=== PATIENT | female | born 1960 | race Caucasian/White ===

== ENCOUNTER 2019-01-05 15:56 | Outpatient (REF) | payer OTHER, MEDICAID, SELFPAY ==
[2019-01-05 19:36] LABS: Hemoglobin A1C 6.8 % (4.5-6.2)
[2019-01-05 22:09] LABS: ALT 41 U/L (12-78); AST 32 U/L (15-37); Albumin 3.7 g/dL (3.4-5.0); Alkaline Phosphatase 99 U/L (46-116); Anion Gap 12.6 mmol/L (3-11); BUN 11 mg/dL (7-18); Bilirubin, Total 0.4 mg/dL (0.2-1.0); CO2 23.4 mmol/L (21.0-32.0); CREATININE 1.02 mg/dL (0.55-1.02); Calcium 9.7 mg/dL (8.5-10.1); Chloride 104 mmol/L (98-107); Estimated GFR 55.86 (mL/min/1.73m2); FREE T4 0.95 ng/dL (0.76-1.46); Glucose 105 mg/dL (70-100); Sodium 140 mmol/L (136-145); TSH 8.25 uIU/mL (0.358-3.74); Total Protein 7.2 g/dL (6.4-8.2)
[2019-01-05 22:23] LABS: Calculated LDL 105; Cholesterol 171 mg/dL (50-200); HDL Cholesterol 45 mg/dL (40-60); Triglyceride 107 mg/dL (30-150)
== END 2019-01-05 16:16 ==
LOC: NCHCN 15:56
PROVIDERS: Visit Provider Nurse Practitioner Family
DX: I10 Essential (primary) hypertension (principal); E78.5 Hyperlipidemia, unspecified; E05.90 Thyrotoxicosis, unspecified without thyrotoxic crisis or storm
CPT/HCPCS: 80053; 80061; 83721; 83036; 84439; 84443

== ENCOUNTER 2019-09-08 13:25 | Outpatient (REF) | payer OTHER, MEDICAID, SELFPAY ==
[2019-09-08 20:05] LABS: TSH 3.68 uIU/mL (0.36-3.74)
== END 2019-09-08 13:45 ==
LOC: NCHCN 13:25
PROVIDERS: PCP Nurse Practitioner Family; Referring Provider Nurse Practitioner Family; Visit Provider Nurse Practitioner Family
DX: E03.9 Hypothyroidism, unspecified (principal)
CPT/HCPCS: 84443; 87480; 87510; 87660

== ENCOUNTER 2020-01-07 14:16 | Outpatient (REF) | payer OTHER, MEDICAID, SELFPAY ==
[2020-01-07 20:49] LABS: ALT 33 U/L (14-59); AST 26 U/L (15-37); Albumin 3.8 g/dL (3.4-5.0); Alkaline Phosphatase 85 U/L (46-116); Anion Gap 8.4 mmol/L (3-11); BUN 11 mg/dL (7-18); Bilirubin, Total 0.5 mg/dL (0.2-1.0); CO2 28.6 mmol/L (21.0-32.0); CREATININE 1.13 mg/dL (0.55-1.02); Calcium 9.4 mg/dL (8.5-10.1); Calculated LDL 121 mg/dL (<100); Chloride 102 mmol/L (98-107); Cholesterol 196 mg/dL (<200); Estimated GFR 49.46 (mL/min/1.73m2); Glucose 93 mg/dL (74-106); HDL Cholesterol 57 mg/dL (40-60); Potassium 4.1 mmol/L (3.5-5.1); Sodium 139 mmol/L (136-145); Total Protein 7.5 g/dL (6.4-8.2); Triglyceride 91 mg/dL (<150)
== END 2020-01-07 14:36 ==
LOC: NCHCN 14:16
PROVIDERS: PCP Nurse Practitioner Family; Visit Provider Nurse Practitioner Family
DX: I10 Essential (primary) hypertension (principal); E78.5 Hyperlipidemia, unspecified
CPT/HCPCS: 80053; 80061

== ENCOUNTER 2021-01-09 19:00 | Outpatient (REF) | payer OTHER, MEDICAID, SELFPAY ==
[2021-01-09 21:04] LABS: ALT 43 U/L (14-59); AST 41 U/L (15-37); Albumin 3.3 g/dL (3.4-5.0); Alkaline Phosphatase 112 U/L (46-116); Anion Gap 10.9 mmol/L (3-11); BUN 13 mg/dL (7-18); Bilirubin, Total 0.2 mg/dL (0.2-1.0); CO2 25.1 mmol/L (21.0-32.0); CREATININE 1.1 mg/dL (0.55-1.02); Calcium 8.6 mg/dL (8.5-10.1); Chloride 103 mmol/L (98-107); Estimated GFR 50.84 (mL/min/1.73m2); Glucose 135 mg/dL (74-106); Potassium 3.8 mmol/L (3.5-5.1); Sodium 139 mmol/L (136-145); TSH 4.97 uIU/mL (0.36-3.74); Total Protein 7.1 g/dL (6.4-8.2)
[2021-01-09 21:22] LABS: Calculated LDL 101 mg/dL (<100); Cholesterol 169 mg/dL (<200); HDL Cholesterol 40 mg/dL (40-60); Triglyceride 142 mg/dL (<150)
== END 2021-01-09 19:01 | disposition home or self-care (01) ==
LOC: NCHCN 19:00
PROVIDERS: PCP Nurse Practitioner Family; Visit Provider Nurse Practitioner Family
DX: I10 Essential (primary) hypertension (principal); E78.5 Hyperlipidemia, unspecified; E11.9 Type 2 diabetes mellitus without complications; E03.9 Hypothyroidism, unspecified
CPT/HCPCS: 80053; 80061; 83036; 84443

== ENCOUNTER 2021-07-25 19:10 | Outpatient (REF) | payer OTHER, MEDICAID, SELFPAY ==
[2021-07-25 20:09] LABS: COMMENT (LAB VIEW ONLY) 134.54 mg/dL; Microalb ug/mg Crea 12.9 ug/mg Cr
[2021-07-25 20:49] LABS: Anion Gap 8.4 mmol/L (3-11); BUN 9 mg/dL (7-18); CO2 29.6 mmol/L (21.0-32.0); Chloride 101 mmol/L (98-107); Estimated GFR 56.56 (mL/min/1.73m2); Glucose 131 mg/dL (74-106); Potassium 3.7 mmol/L (3.5-5.1); Sodium 139 mmol/L (136-145); TSH (W/Ref FT4) 9.59 uIU/mL (0.36-3.74)
[2021-07-25 21:14] LABS: FREE T4 1.02 ng/dL (0.76-1.46)
== END 2021-07-25 19:11 | disposition home or self-care (01) ==
LOC: NCHCN 19:10
PROVIDERS: PCP Nurse Practitioner Family; Visit Provider Physician Assistant
DX: E11.9 Type 2 diabetes mellitus without complications (principal); I10 Essential (primary) hypertension; E03.9 Hypothyroidism, unspecified
CPT/HCPCS: 80048; 82043; 82570; 84439; 84443

== ENCOUNTER 2021-09-12 16:22 | Outpatient (REF) | payer OTHER, MEDICAID, SELFPAY ==
[2021-09-12 21:34] LABS: TSH (W/Ref FT4) 7.95 uIU/mL (0.36-3.74)
[2021-09-12 22:14] LABS: FREE T4 1.11 ng/dL (0.76-1.46)
== END 2021-09-12 16:23 | disposition home or self-care (01) ==
LOC: NCHCN 16:22
PROVIDERS: PCP Nurse Practitioner Family; Visit Provider Physician Assistant
DX: E03.9 Hypothyroidism, unspecified (principal)
CPT/HCPCS: 84439; 84443

== ENCOUNTER 2022-01-10 18:27 | Outpatient (REF) | payer OTHER, MEDICAID, SELFPAY ==
[2022-01-10 21:47] LABS: ALT 54 U/L (14-59); AST 67 U/L (15-37); Albumin 3.6 g/dL (3.4-5.0); Alkaline Phosphatase 101 U/L (46-116); Anion Gap 8.7 mmol/L (3-11); BUN 11 mg/dL (7-18); Bilirubin, Total 0.3 mg/dL (0.2-1.0); CO2 27.3 mmol/L (21.0-32.0); CREATININE 0.9 mg/dL (0.55-1.02); Calcium 9.2 mg/dL (8.5-10.1); Chloride 106 mmol/L (98-107); Glucose 100 mg/dL (74-106); Potassium 3.9 mmol/L (3.5-5.1); Sodium 142 mmol/L (136-145); TSH (W/Ref FT4) 8.63 uIU/mL (0.36-3.74); Total Protein 7.4 g/dL (6.4-8.2)
[2022-01-10 22:06] LABS: FREE T4 1.15 ng/dL (0.76-1.46)
== END 2022-01-10 18:28 | disposition home or self-care (01) ==
LOC: NCHCN 18:27
PROVIDERS: PCP Nurse Practitioner Family; Visit Provider Physician Assistant
DX: E11.9 Type 2 diabetes mellitus without complications (principal); E03.9 Hypothyroidism, unspecified
CPT/HCPCS: 80053; 84439; 84443

== ENCOUNTER 2022-02-15 11:36 | Outpatient (REF) | payer OTHER, MEDICAID, SELFPAY ==
[2022-02-15 19:22] LABS: TSH (W/Ref FT4) 4.59 uIU/mL (0.36-3.74)
== END 2022-02-15 11:37 | disposition home or self-care (01) ==
LOC: NCHCN 11:36
PROVIDERS: PCP Nurse Practitioner Family; Visit Provider Physician Assistant
DX: E03.9 Hypothyroidism, unspecified (principal)
CPT/HCPCS: 84439; 84443

== ENCOUNTER 2022-10-11 15:52 | Outpatient (REF) | payer MEDICARE, MEDICAID, SELFPAY ==
[2022-10-11 19:33] LABS: TSH 3.92 uIU/mL (0.36-3.74)
== END 2022-10-11 15:53 | disposition home or self-care (01) ==
LOC: NCHCN 15:52
PROVIDERS: PCP Nurse Practitioner Family; Visit Provider Nurse Practitioner Family
DX: E03.9 Hypothyroidism, unspecified (principal)
CPT/HCPCS: 84443

== ENCOUNTER 2023-02-13 16:56 | Outpatient (REF) | payer MEDICARE, MEDICAID, SELFPAY ==
[2023-02-13 20:22] LABS: HCT 29.8 % (36.0-46.0); MCH 21.6 pg (27.0-33.0); MCHC 30.2 % (32.0-36.0); MPV 10.9 fL (8.0-11.0); RBC 4.16 10^6/uL (3.93-5.22); RDW 18.4 % (11.7-14.6); WBC 4.32 10^3/uL (4.4-10.8)
[2023-02-13 20:50] LABS: MCV 72 fL (80-95); Platelet Count 153 10^3/uL (130-400)
[2023-02-13 20:51] LABS: ALT 26 U/L (14-59); AST 27 U/L (15-37); Albumin 3.7 g/dL (3.4-5.0); Alkaline Phosphatase 89 U/L (46-116); Anion Gap 11.2 mmol/L (3-11); BUN 8 mg/dL (7-18); Bilirubin, Total 0.6 mg/dL (0.2-1.0); CO2 26.8 mmol/L (21.0-32.0); CREATININE 0.9 mg/dL (0.55-1.02); Calcium 9.4 mg/dL (8.5-10.1); Chloride 102 mmol/L (98-107); Estimated GFR 72.73 (mL/min/1.73m2); Glucose 95 mg/dL (74-106); Potassium 3.8 mmol/L (3.5-5.1); Sodium 140 mmol/L (136-145); Total Protein 7.6 g/dL (6.4-8.2)
[2023-02-13 20:59] LABS: COMMENT (LAB VIEW ONLY) 98.36 mg/dL
== END 2023-02-13 16:57 | disposition home or self-care (01) ==
LOC: NCHCN 16:56
PROVIDERS: PCP Nurse Practitioner Family; Visit Provider Physician Assistant
DX: E11.9 Type 2 diabetes mellitus without complications (principal); R74.8 Abnormal levels of other serum enzymes
CPT/HCPCS: 80053; 85027; 82043; 82570

== ENCOUNTER 2023-02-15 15:41 | Outpatient (REF) | payer MEDICARE, MEDICAID, SELFPAY ==
[2023-02-15 19:18] LABS: Iron 19 ug/dL (50-170); Total Iron Binding Capacity 512 ug/dL (250-450); Transferrin Sat 4 % (15-50)
[2023-02-15 19:29] LABS: Ferritin 7 ng/mL (8-252)
== END 2023-02-15 15:42 | disposition home or self-care (01) ==
LOC: NCHCN 15:41
PROVIDERS: PCP Nurse Practitioner Family; Visit Provider Physician Assistant
DX: D64.9 Anemia, unspecified (principal)
CPT/HCPCS: 82728; 83540; 83550

== ENCOUNTER 2023-04-22 13:05 | Outpatient (REF) | payer MEDICARE, MEDICAID, SELFPAY ==
[2023-04-22 20:26] LABS: HCT 31.8 % (36.0-46.0); HGB 9.5 g/dL (11.2-15.7); MCH 21.7 pg (27.0-33.0); MCHC 29.9 % (32.0-36.0); MCV 73 fL (80-95); Platelet Count 156 10^3/uL (130-400); RBC 4.38 10^6/uL (3.93-5.22); RDW 18.7 % (11.7-14.6); RDW-SD 48.2 fL; WBC 4.52 10^3/uL (4.4-10.8)
[2023-04-22 21:03] LABS: Ferritin 8 ng/mL (8-252)
[2023-04-22 21:53] LABS: Iron 135 ug/dL (50-170); Total Iron Binding Capacity 483 ug/dL (250-450); Transferrin Sat 28 % (15-50)
== END 2023-04-22 13:06 | disposition home or self-care (01) ==
LOC: NCHCN 13:05
PROVIDERS: PCP Nurse Practitioner Family; Visit Provider Physician Assistant
DX: D50.9 Iron deficiency anemia, unspecified (principal)
CPT/HCPCS: 85027; 82728; 83540; 83550

== ENCOUNTER 2023-08-13 15:30 | Outpatient (REF) | payer MEDICARE, MEDICAID, SELFPAY ==
[2023-08-13 19:35] LABS: Abs Immature Grans 0.02 10^3/uL (0.0-0.06); Absolute Basophil Count 0.07 10^3/uL (0.0-0.2); Absolute Eosinophil Count 0.21 10^3/uL (0.0-0.7); Absolute Monocyte Count 0.49 10^3/uL (0.1-0.8); Absolute Neutrophil Count 1.91 10^3/uL (1.2-6.7); Basophils % 1.6; Eosinophils % 4.9; HGB 12.3 g/dL (11.2-15.7); Immature Grans % 0.5; Lymphocytes % 37.2; MCHC 33.2 % (32.0-36.0); MCV 84 fL (80-95); MPV 11.8 fL (8.0-11.0); Monocytes % 11.4; Neutrophils % 44.4; Platelet Count 122 10^3/uL (130-400); RBC 4.39 10^6/uL (3.93-5.22); RDW 15.1 % (11.7-14.6); RDW-SD 46.1 fL
[2023-08-13 20:08] LABS: Anion Gap 9.2 mmol/L (3-11); BUN 11 mg/dL (7-18); CO2 26.8 mmol/L (21.0-32.0); CREATININE 0.8 mg/dL (0.55-1.02); Calcium 9.8 mg/dL (8.5-10.1); Chloride 102 mmol/L (98-107); Estimated GFR 83.26 (mL/min/1.73m2); Ferritin 42 ng/mL (8-252); Glucose 94 mg/dL (74-106); Potassium 3.6 mmol/L (3.5-5.1); Sodium 138 mmol/L (136-145); TSH (W/Ref FT4) 5.33 uIU/mL (0.36-3.74)
[2023-08-13 20:18] LABS: Hemoglobin A1C 6.5 % (<5.7)
[2023-08-13 20:28] LABS: FREE T4 1.22 ng/dL (0.76-1.46)
[2023-08-13 21:06] LABS: Iron 96 ug/dL (50-170); Total Iron Binding Capacity 470 ug/dL (250-450); Transferrin Sat 20 % (15-50)
== END 2023-08-13 15:31 | disposition home or self-care (01) ==
LOC: NCHCN 15:30
PROVIDERS: PCP Nurse Practitioner Family; Visit Provider Physician Assistant
DX: D50.9 Iron deficiency anemia, unspecified (principal); E11.9 Type 2 diabetes mellitus without complications; E03.9 Hypothyroidism, unspecified
CPT/HCPCS: 80048; 82728; 83036; 83540; 83550; 84439; 84443; 85025

== ENCOUNTER 2023-10-02 13:45 | Outpatient (REF) | payer MEDICARE, MEDICAID, SELFPAY ==
[2023-10-02 20:28] LABS: TSH (W/Ref FT4) 2.01 uIU/mL (0.36-3.74)
== END 2023-10-02 13:46 | disposition home or self-care (01) ==
LOC: NCHCN 13:45
PROVIDERS: PCP Nurse Practitioner Family; Visit Provider Physician Assistant
DX: E03.9 Hypothyroidism, unspecified (principal)
CPT/HCPCS: 84443

== ENCOUNTER 2024-02-13 16:35 | Outpatient (REF) | payer MEDICARE, MEDICAID, SELFPAY ==
--- OUTSIDE RECORDS SUMMARY | 2024-02-13 16:37 | XMS_ITS | Clinical Summary ---
Author Organization [facility] Address [address] [place] [id number] Care Team Providers Care Construction Craft Laborer Name Role Phone Agus Kumar MD Primary Care Provider Social History Tobacco Use Types Packs/Day Years Used Date Smoking Tobacco: Never Assessed Sex and Gender Information Value Date Recorded Sex Assigned at Not on file Gender Identity Not on file Sexual Orientation Not on file Plan of Treatment Health Maintenance Due Date Last Done Comments Hepatitis C Screen 1960 RSV Immunization ( o r 60+ Years) (1 - 1-dose 60+ series) 2021 COVID-19 Vaccine (2022-24 season) 2023 Care Teams Construction Craft Laborer Relationship Specialty Start Date End Date Agus Kumar MD [address] [place] [address] PCP - General 06/18/15
--- OUTSIDE RECORDS SUMMARY | 2024-02-13 16:37 | XMS_ITS | Referral Summary ---
Author Organization [facility] Address [address] [place] [address] Care Team Providers Care Field Checker Name Role Phone Agus Kumar MD Primary Care Provider [phone] Social History Tobacco Use Types Packs/Day Years Used Date Smoking Tobacco: Never Assessed Sex and Gender Information Value Date Recorded Sex Assigned at Not on file Gender Identity Not on file Sexual Orientation Not on file Plan of Treatment Not on file Care Teams Field Checker Relationship Specialty Start Date End Date Agus Kumar MD [address] [place] [address] PCP - General 06/18/15
--- OUTSIDE RECORDS SUMMARY | 2024-02-13 16:37 | XMS_ITS | Data Portability ---
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 Plan of Treatment Reminders Order Date Submit Date Provider Last Modified By Organization Details Last Modified Time Details Appointments Annual Wellness Exam 40 2023 01:40P Andrea EVANGELISTA Not available Not available Not available Follow Up 30 2024 09:30A M BIRDIE EVANGELISTA Not available Not available Not available Lab hemoglobi n A1C, fingersti ck 2022 023 [email or web address] [facility] [place], [address] [place] [address] [address], [place], [address], 06/21/2023 15:17:10 BMP, serum or plasma [address] [facility] (Registration ), [address] [place] [address] [place], [address], 08/20/2023 08:03:03 HbA1c (hemoglob in A1c), blood [address] [facility] (Registration ), [address] [place] [address] [place], [address], 08/20/2023 08:03:03 TSH, serum, reflex free T4 - Specimen collected in the office at [facility]. [address] [facility] (Registration ), [address] [place] [address] [place], [address], 08/20/2023 08:03:03 CBC w/ auto diff - Specimen collected in the office at [facility]. 2023 024 [facility] (Registration ), [address] [place] [address] [place], [address], 08/13/2023 19:40:38 iron + TIBC + ferritin, serum - Specimen collected in the office at [facility]. [address] [facility] (Registration ), [address] [place] [address] [place], [address], 08/20/2023 08:03:03 TSH, serum, reflex free T4 [address] [facility] (Registration ), [address] [place] [address] [place], [address], 10/03/2023 07:36:24 Referral None recorded. Procedures None recorded. Surgeries None recorded. Imaging MRI, brain, w/wo contrast - post concussio n symptoms after fall in may also CT scan showed moderate white matter disease r/o MS 2023 024 [facility], [address] , [place], [address], 08/13/2023 16:07:40 Medication Orders cyclobenz aprine 5 mg tablet 2022 023 [id number], [address], [place], [address], 06/21/2023 15:17:13 Patient TargetsNo targets recorded. Patient Instructions Encounter Date Encounter Id Patient Instructions Last Modified By Organization Details Last Modified Time 06/21/2023 [id number] {{[facility] ([facility])* [place] r[facility] ([facility]) [facility] ([facility]) [facility] ([facility]) [facility] ([facility]) [facility] ([facility]) [facility]}} will contact you to schedule {{bone density CT scan Heart Monitor mammogram MRI Ultrasound S tress Test Xray MRI of brain#}}. If you do not receive a call in 7-10 days please contact the office. You have been prescribed cyclobenzaprine. Take as directed on the bottle. This medication can make you drowsy or dizzy. Do not drive or operate heavy machinery while on this medication. It is okay to take it just at bedtime if you need to drive during the day. drink plenty water, eat regular healthy meals, get plenty of sleep and take breaks frequently Not available 06/21/2023 15:23:03 08/13/2023 [id number] You had blood work done today. Please allow up to 2 weeks to hear about results. {{[facility] ([facility])* [place] mercado [facility] ([facility]) [facility] ([facility] ([facility]) [facility] ([facility]) [facility] ([facility]) [facility]}} will contact you to schedule {{bone density CT scan Heart Monitor mammogram MRI* Ultrasound Stress Test Xray}}. If you do not receive a call in 7-10 days please contact the office. continue current medications Call with any questions or concerns Not available 08/13/2023 13:46:16 Reason for Referral None Reported. Results Created Date Observation Date Name Description Value Unit Range Abnormal Flag LastModifiedBy Organization Detail LastModifiedTime 06/21/2006/21/2023 hemog lobin A1C, finge rstic k HbA1C 6.4 Not Available [facility] [address] [facility] [address], [place], [address], 06/21/2023 15:00:46 08/13/19 24 08/13/2023 COMPL ETE BLOOD COUNT W/DIF F WBC 4.30 10_3/ uL 4.4-10 .8 low Not Available [facility] [address] [facility] [place], [address] 08/13/2023 19:40:38 08/13/19 24 08/13/2023 COMPL ETE BLOOD COUNT W/DIF F RBC 4.39 10_6/ uL 3.93-5 .22 normal Not Available [address] [place], [address] 08/13/2023 19:40:38 08/13/19 24 08/13/2023 COMPL ETE BLOOD COUNT W/DIF F HGB 12.3 g/dL 11.2-1 5.7 normal Not Available [address] [place], [address] 08/13/2023 19:40:38 08/13/19 24 08/13/2023 COMPL ETE BLOOD COUNT W/DIF F HCT 37.0 % 36.0-4 6.0 normal Not Available [address] [place], [address] 08/13/2023 19:40:38 08/13/19 24 08/13/2023 COMPL ETE BLOOD COUNT W/DIF F MCV 84 fL 80-95 normal Not Available [address] [place], [address] 08/13/2023 19:40:38 08/13/19 24 08/13/2023 COMPL ETE BLOOD COUNT W/DIF F MCH 28.0 pg 27.0-3 3.0 normal Not Available [address] [place], [address] 08/13/2023 19:40:38 08/13/19 24 08/13/2023 COMPL ETE BLOOD COUNT W/DIF F MCHC 33.2 % 32.0-3 6.0 normal Not Available [address] [place], [address] 08/13/2023 19:40:38 08/13/19 24 08/13/2023 COMPL ETE BLOOD COUNT W/DIF F RDW 15.1 % 11.7-1 4.6 high Not Available [address] [place], [address] 08/13/2023 19:40:38 08/13/19 24 08/13/2023 COMPL ETE BLOOD COUNT W/DIF F platelet count 122 10_3/ uL 130-40 0 low Not Available [address] [place], [address] 08/13/2023 19:40:38 08/13/19 24 08/13/2023 COMPL ETE BLOOD COUNT W/DIF F MPV 11.8 fL 8.0-11 .0 high Not Available [address] [place], [address] 08/13/2023 19:40:38 08/13/19 24 08/13/2023 COMPL ETE BLOOD COUNT W/DIF F neutrophils % 44.4 Not Available [address] [place], [address] 08/13/2023 19:40:38 08/13/19 24 08/13/2023 COMPL ETE BLOOD COUNT W/DIF F lymphocytes % 37.2 Not Available [address] [place], [address] 08/13/2023 19:40:38 08/13/19 24 08/13/2023 COMPL ETE BLOOD COUNT W/DIF F monocytes % 11.4 Not Available [address] [place], [address] 08/13/2023 19:40:38 08/13/19 24 08/13/2023 COMPL ETE BLOOD COUNT W/DIF F eosinophils % 4.9 Not Available [address] [place], [address] 08/13/2023 19:40:38 08/13/19 24 08/13/2023 COMPL ETE BLOOD COUNT W/DIF F basophils % 1.6 Not Available [address] [facility] [place], [address] 08/13/2023 19:40:38 08/13/19 24 08/13/2023 COMPL ETE BLOOD COUNT W/DIF F immature grans % 0.5 Not Available [address] [place], [address] 08/13/2023 19:40:38 08/13/19 24 08/13/2023 COMPL ETE BLOOD COUNT W/DIF F nucleated RBC 0.0 % 0.0-0. 3 normal Not Available [address] [place], [address] 08/13/2023 19:40:38 08/13/19 24 08/13/2023 COMPL ETE BLOOD COUNT W/DIF F absolute neutrophil count 1.91 10_3/ uL 1.2-6. 7 normal Not Available [address] [place], [address] 08/13/2023 19:40:38 08/13/19 24 08/13/2023 COMPL ETE BLOOD COUNT W/DIF F absolute lymphocyte count 1.60 10_3/ uL 1.2-3. 4 normal Not Available [address] [place], [address] 08/13/2023 19:40:38 08/13/19 24 08/13/2023 COMPL ETE BLOOD COUNT W/DIF F absolute monocyte count 0.49 10_3/ uL 0.1-0. 8 normal Not Available [address] [place], [address] 08/13/2023 19:40:38 08/13/19 24 08/13/2023 COMPL ETE BLOOD COUNT W/DIF F absolute eosinophil count 0.21 10_3/ uL 0.0-0. 7 normal Not Available [address] [place], [address] 08/13/2023 19:40:38 08/13/19 24 08/13/2023 COMPL ETE BLOOD COUNT W/DIF F absolute basophil count 0.07 10_3/ uL 0.0-0. 2 normal Not Available [address] [place], [address] 08/13/2023 19:40:38 08/13/19 24 08/13/2023 BASIC METAB OLIC PANEL calcium 9.8 mg/dL 8.5-10 .1 normal Not Available [address] [place], [address] 08/13/2023 20:10:42 08/13/19 24 08/13/2023 BASIC METAB OLIC PANEL glucose 94 mg/dL 74-106 normal Not Available [address] [place], [address] 08/13/2023 20:10:42 08/13/19 24 08/13/2023 BASIC METAB OLIC PANEL BUN 11 mg/dL 7-18 normal Not Available [address] [place], [address] 08/13/2023 20:10:42 08/13/19 24 08/13/2023 BASIC METAB OLIC PANEL creatinine 0.8 mg/dL 0.55-1 .02 normal Not Available [address] [place], [address] 08/13/2023 20:10:42 08/13/19 24 08/13/2023 BASIC METAB OLIC PANEL estimated GFR 83.26 mL/min /1.73m 2 Not Available [address] [place], [address] 08/13/2023 20:10:42 08/13/19 24 08/13/2023 BASIC METAB OLIC PANEL sodium 138 mmol/ L 136-14 5 normal Not Available [address] [place], [address] 08/13/2023 20:10:42 08/13/19 24 08/13/2023 BASIC METAB OLIC PANEL potassium 3.6 mmol/ L 3.5-5. 1 normal Not Available [address] [place], [address] 08/13/2023 20:10:42 08/13/19 24 08/13/2023 BASIC METAB OLIC PANEL chloride 102 mmol/ L 98-107 normal Not Available [address] [place], [address] 08/13/2023 20:10:42 08/13/19 24 08/13/2023 BASIC METAB OLIC PANEL CO2 26.8 mmol/ L 21.0-3 2.0 normal Not Available [address] [place], [address] 08/13/2023 20:10:42 08/13/19 24 08/13/2023 BASIC METAB OLIC PANEL anion gap 9.2 mmol/ L 3-11 normal Not Available [address] [place], [address] 08/13/2023 20:10:42 08/13/19 24 08/13/2023 ELAN TIN ferritin 42 NG/mL 8-252 normal Not Available [address] [place], [address] 08/13/2023 20:10:42 08/13/19 24 08/13/2023 TSH (W/RE F FT4) TSH (w/ref FT4) 5.33 uIU/m L 0.36-3 .74 high Not Available [address] [place], [address] 08/13/2023 20:10:42 08/13/19 24 08/13/2023 HEMOG LOBIN A1C hemoglobin A1C 6.5 % <5.7 high Not Available [address] [place], [address] 08/13/2023 20:25:44 08/13/19 24 08/13/2023 BASIC METAB OLIC PANEL calcium 9.8 mg/dL 8.5-10 .1 normal Not Available [address] [place], [address] 08/13/2023 20:29:45 08/13/19 24 08/13/2023 BASIC METAB OLIC PANEL glucose 94 mg/dL 74-106 normal Not Available [address] [place], [address] 08/13/2023 20:29:45 08/13/19 24 08/13/2023 BASIC METAB OLIC PANEL BUN 11 mg/dL 7-18 normal Not Available [address] [place], [address] 08/13/2023 20:29:45 08/13/19 24 08/13/2023 BASIC METAB OLIC PANEL creatinine 0.8 mg/dL 0.55-1 .02 normal Not Available [address] [place], [address] 08/13/2023 20:29:45 08/13/19 24 08/13/2023 BASIC METAB OLIC PANEL estimated GFR 83.26 mL/min /1.73m 2 Not Available [address] [place], [address] 08/13/2023 20:29:45 08/13/19 24 08/13/2023 BASIC METAB OLIC PANEL sodium 138 mmol/ L 136-14 5 normal Not Available [address] [place], [address] 08/13/2023 20:29:45 08/13/19 24 08/13/2023 BASIC METAB OLIC PANEL potassium 3.6 mmol/ L 3.5-5. 1 normal Not Available [address] [place], [address] 08/13/2023 20:29:45 08/13/19 24 08/13/2023 BASIC METAB OLIC PANEL chloride 102 mmol/ L 98-107 normal Not Available [address] [place], [address] 08/13/2023 20:29:45 08/13/19 24 08/13/2023 BASIC METAB OLIC PANEL CO2 26.8 mmol/ L 21.0-3 2.0 normal Not Available [address] [place], [address] 08/13/2023 20:29:45 08/13/19 24 08/13/2023 BASIC METAB OLIC PANEL anion gap 9.2 mmol/ L 3-11 normal Not Available [address] [place], [address] 08/13/2023 20:29:45 08/13/19 24 08/13/2023 ELAN TIN ferritin 42 NG/mL 8-252 normal Not Available [address] [place], [address] 08/13/2023 20:29:45 08/13/19 24 08/13/2023 TSH (W/RE F FT4) TSH (w/ref FT4) 5.33 uIU/m L 0.36-3 .74 high Not Available [address] [place], [address] 08/13/2023 20:29:46 08/13/19 24 08/13/2023 FREE T4 free T4 1.22 NG/dL 0.76-1 .46 normal Not Available [address] [place], [address] 08/13/2023 20:29:46 08/13/19 24 08/13/2023 IRON/ IBCT iron 96 ug/dL 50-170 normal Not Available Payal marie [address] [place], [address] 08/13/2023 21:09:51 08/13/19 24 08/13/2023 IRON/ IBCT total iron binding capacity 470 ug/dL 250-45 0 high Not Available [address] [place], [address] 08/13/2023 21:09:51 08/13/19 24 08/13/2023 IRON/ IBCT transferrin sat 20 % 15-50 normal Not Available [address] [place], [address] 08/13/2023 21:09:51 10/02/19 24 10/02/2023 TSH (W/RE F FT4) TSH (w/ref FT4) 2.01 uIU/m L 0.36-3 .74 normal Not Available [address] [place], [address] 10/02/2023 20:30:11 02/13/20 24 02/13/2024 hemog lobin A1C, finge rstic k hemoglobin A1C 6.6 % <5.7 Not Available [facility] [address] [place] [address], [place], [address], 02/13/2024 13:44:50 Result Notes None recorded. Problems Name Status Onset Date Resolution Date Notes Provider Name and Address Organization Details Recorded Time Severe obesity Active 201808/15/2022 - Comments only - Birdie BENNETT - Congratulated patient on weight loss keep up the good work Problem Code: E66.01; Problem Code Type: ICD-10; Not Available [facility] 3 05:38:56 Essential hypertension Active 201802/14/2023 - Comments only - Birdie BENNETT - Blood pressure well controlled continue current medications. Checking CMP. Problem Code: I10; Problem Code Type: ICD-10; Not Available [facility] 3 05:38:56 Low back pain Active 2018 Problem Code: M54.5; Problem Code Type: ICD-10; Not Available [facility] 3 05:38:57 Hypothyroidis m Active 201802/14/2023 - Comments only - Birdie BENNETT - Continue current dose of levothyroxine . Thyroid last checked in September 2022. Problem Code: E03.9; Problem Code Type: ICD-10; Not Available [facility] 3 05:38:57 Headache Active 2018 Problem Code: R51; Problem Code Type: ICD-10; Not Available [facility] 3 05:38:57 Gastroesophag eal reflux disease without esophagitis Active 2018 Problem Code: K21.9; Problem Code Type: ICD-10; Not Available [facility] 3 05:38:57 Nicotine dependence Active 201802/14/2023 - Comments only - Birdie BENNETT - Patient states that she is a light smoker and is not ready to quit at this time Problem Code: F17.200; Problem Code Type: ICD-10; Not Available [facility] 3 05:38:57 Vitamin D deficiency Active 2018 Problem Code: E55.9; Problem Code Type: ICD-10; Not Available [facility] 3 05:38:57 Type 2 diabetes mellitus without complication Active 201802/15/2022 - Comments only - Birdie BENNETT - A1c decreased to 6.8. Continue current medications. Keep eye exam as scheduled. Patient refuses foot exam. Discussion about proper foot care. Problem Code: E11.9; Problem Code Type: ICD-10; Not Available [facility] 3 05:38:58 Hyperlipidemi a Active 201801/17/2021 - Comments only - Delmi Monroy NP - Tolerating Crestor. Update lipid panel. Problem Code: E78.5; Problem Code Type: ICD-10; Not Available [facility] 3 05:38:58 Counseling Active 201801/08/2019 - Comments only - Delmi Monroy B[employer]ER - Reviewed records, meds, squared away her DM meds (should only be on Janumet). Refills sent to [facility]. Problem Code: Z71.89; Problem Code Type: ICD-10; Not Available [facility] 3 05:38:58 Allergic rhinitis Active 202008/15/2022 - Comments only - Birdie BENNETT - I suspect that her symptoms are more related to allergies and in the past it seems as though she had relief from the Pataday eyedrops. Prescription sent into pharmacy. Continue with Flonase. Problem Code: J30.9; Problem Code Type: ICD-10; Not Available [facility] 3 05:38:58 High enzyme level in serum Active 2021 Problem Code: R74.8; Problem Code Type: ICD-10; Not Available [facility] 3 05:38:58 Iron deficiency anemia Active 2022 Problem Code: D50.9; Problem Code Type: ICD-10; Not Available [facility] 3 05:38:58 Adult health examination Active 2022 Problem Code: Z00.00; Problem Code Type: ICD-10; Not Available [facility] 3 05:38:59 Thyrotoxicosi s Completed 201804/24/2023 Problem Code: E05.90; Problem Code Type: ICD-10; Not Available [facility] 3 05:39:27 Blood glucose outside reference range Completed 201812/15/2018 Problem Code: R73.09; Problem Code Type: ICD-10; Not Available [facility] 3 05:39:32 Anemia Completed 202204/24/2023 Problem Code: D64.9; Problem Code Type: ICD-10; Not Available [facility] 3 05:39:36 Major depression, single episode Completed 201801/05/2019 Problem Code: F32.9; Problem Code Type: ICD-10; Not Available [facility] 3 05:39:37 Postconcussio n syndrome Active [address], [place], [address] , [facility]. 3 15:15:22 Neck pain Active 202205/20/2023 - Comments only - Edith Worrell [employer] - Neck pain and headache s/p fall on Saturday. Was sitting on a chair that collapsed and she hit her head and back on the chest freezer just behind her. Feels achy all over, has been taking acetaminphen without signficant relief Problem Code: M54.2; Problem Code Type: ICD-10; Not Available [facility] 4 05:37:26 Tremor Active 202205/20/2023 - Comments only - Edith Worrell B[employer]OCKER - Has been having shaking spells which started prior to her fall. Reports she drinks Iced coffee all day long from first waking to just before bed. Has episodes where she is shaking all over. Recommend try to decrease her caffeine, follow up with PCP in one week. Sooner if needed Problem Code: R25.1; Problem Code Type: ICD-10; Not Available [facility] 4 05:37:26 White matter disease Active 2022 Problem Code: R90.82; Problem Code Type: ICD-10; Not Available [facility] 4 05:37:26 Problem Notes None recorded. Procedures Surgical History Date Name Laterality Status Provider Name and Address Organization Details Recorded Time 2 Date of Last Pap Smear completed Layne Sarmiento RN null, [facility] 09/30/2023 11:06:22 Colonoscopy completed Layne Sarmiento RN null, [facility] 09/30/2023 11:08:24 Imaging Results None recorded. Procedure Notes None recorded. Medical Equipment None Reported. Allergies Allergen ID Allergen Name Allergen Category Reaction Reaction Severity Criticality Documentation Date Start Date Code Code System Note Provider Name and Address Organization Details Recorded Time 99885 acetamino phen / oxycodone medicatio n hives moderate Not available 06/07/20232018 89999 3 RxNorm hives Aller gyCod e: '7224 [id number] 12'; Aller gyNam e: 'PERC OCET' ; Aller gyCon ceptT ype: 'NDC' ; Not Available [facility] 3 16:18:36 Medications Name Sig Start Date Stop Date Status Note LastModified by Organization Details LastModified Time Vitamin C 500 mg tablet Take 1 tablet by mouth once a day with iron suppleme nt 2022 active Not Available Not Available Not Avai lable metoprolo l succinate ER 100 mg tablet,ex tended release 24 hr TAKE ONE TABLET BY MOUTH EVERY DAY active Not Available Not Available No t Available penicilli n V potassium 500 mg tablet Take two tablets twice a day 10/28 completed Not Available Not Available Not Available omeprazol e 40 mg capsule,d elayed release TAKE ONE CAPSULE BY MOUTH EVERY DAY active Not Available Not Available No t Available levothyro xine 75 mcg tablet Take 1 tablet by mouth once a day 09/13 completed Not Available Not Available Not Available levothyro xine 100 mcg tablet TAKE ONE TABLET BY MOUTH EVERY DAY 08/14 completed dose increase Not Available Not Available Not Available levothyro xine 88 mcg tablet Take 1 tablet by mouth once a day on empty stomach 01/12 completed Not Available Not Available Not Available trazodone 100 mg tablet Take 1 tab by mouth daily at bedtime 01/05 completed Not Available Not Available Not Available Synthroid 25 mcg tablet Take 1 tab by mouth daily 01/06 completed Not Available Not Available Not Available levothyro xine 50 mcg tablet Take 1 tablet by mouth once a day TAKE ONE TABLET BY MOUTH EVERY DAY 09/11 completed Not Available Not Available Not Available metformin 1,000 mg tablet Take 1 tab by mouth twice daily 01/05 completed Not Available Not Available Not Available levothyro xine 125 mcg tablet TAKE ONE TABLET BY MOUTH EVERY MORNING active Not Available Not Available No t Available hydrochlo rothiazid e 25 mg tablet TAKE ONE TABLET BY MOUTH EVERY DAY active Not Available Not Available No t Available gabapenti n 100 mg capsule TAKE ONE CAPSULE BY MOUTH TWICE A DAY active Not Available Not Available No t Available albuterol sulfate HFA 90 mcg/actua tion aerosol inhaler Inhale 2 puff using inhaler every four to six hours as needed FOR COUGHING FITS, WHEEZING OR SHORTNES S OF BREATH 05/27 completed Not Available Not Available Not Available fluticaso ne propionat e 50 mcg/actua tion nasal spray,thomas pension SPRAY TWO SPRAYS IN EACH NOSTRIL EVERY DAY active Not Available Not Available No t Available loratadin e 10 mg tablet Take 1 tablet by mouth once a day 07/25 completed Not Available Not Available Not Available cyclobenz aprine 5 mg tablet TAKE ONE TABLET BY MOUTH THREE TIMES A DAY NEEDED active Not Available Not Available No t Available Crestor 5 mg tablet Take 1 tablet by mouth every night 07/25 completed Not Available Not Available Not Available Albuterol Sulfate HFA 90 mcg/Actua tion aerosol inhaler Inhale 2 puffs every 4 hours by inhalati on route as needed. active Not Available Not Available No t Available Januvia 100 mg tablet Take 1 tab by mouth daily 01/05 completed Not Available Not Available Not Available olopatadi ne 0.2 % eye drops INSTILL ONE DROP IN EACH EYE EVERY 6 TO 8 HOURS NEEDED FOR ALLERGIE S active Not Available Not Available No t Available Janumet 50 mg-1,000 mg tablet TAKE ONE TABLET BY MOUTH TWICE A DAY active Not Available Not Available No t Available FeroSul 325 mg (65 mg iron) tablet TAKE ONE TABLET BY MOUTH ONCE DAILY active Not Available Not Available No t Available Vitals Date Recorded Body height Oxygen saturation Oxygen saturation in Arterial blood by Pulse oximetry Heart rate Systolic blood pressure Diastolic blood pressure Provider Name and Address Organization Details Last Updated DateTime 3 165.1 cm 98 % 98 % 65 /min 124 mm[Hg] 66 mm[Hg] PINEDA GREENWOOD MA DE - [facility]. 3 15:02:12 Date Recorded Body height Body mass index (BMI) Body weight Oxygen saturation Oxygen saturation in Arterial blood by Pulse oximetry Heart rate Systolic blood pressure Diastolic blood pressure Provider Name and Address Organization Details Last Updated DateTime 4 165.1 cm 42.1 kg/m2 959454. 37 g 97 % 97 % 79 /min 134 mm[Hg] 78 mm[Hg] Raymond Trammell RN [facility] 4 13:19:33 Date Recorded Body height Body mass index (BMI) Body weight Body temperature Respiratory rate Oxygen saturation Oxygen saturation in Arterial blood by Pulse oximetry Heart rate Systolic blood pressure Diastolic blood pressure Provider Name and Address Organization Details Last Updated DateTime 4 165.1 cm 41.2 kg/m2 325453. 42 g 96.3 [degF] 18 /min 96 % 96 % 80 /min 130 mm[Hg] 80 mm[Hg] JESUS MOCTEZUMA LPN [facility] 4 13:16:03 Social History Question Answer Notes LastModified by Organizat ion Details LastModified Time Tobacco Smoking Status Current Every Day Smoker ARY LIU, [facility] 06/21/2023 15:00:37 Would You Say That, In General, Your Health Is Fair Information not available 02/13/2024 How Often Does Anyone, Including Family, Physically Hurt You? Never Information not available 02/13/2024 How Often Does Anyone, Including Family, Insult Or Talk Down To You? Never Information no t available 02/13/2024 How Often Does Anyone, Including Family, Threaten You With Harm? Never Information not available 02/13/2024 How Often Does Anyone, Including Family, Scream Or Curse At You? Never Information not available 02/13/2024 Within The Past 12 Months, You Worried That Your Food Would Run Out Before You Got Money To Buy More. Often True Information n ot available 02/13/2024 Within The Past 12 Months, The Food You Bought Just Didn't Last And You Didn't Have Money To Get More. Sometimes True Information not available 02/13/2024 How Hard Is It For You To Pay For The Very Basics Like Food, Housing, Medical Care, And Heating? Would You Say It Is: Somewhat Hard Information not available 02/13/2024 In The Past 12 Months, Has Lack Of Reliable Transportation Kept You From Medical Appointments, Meetings, Work Or From Getting Things Needed For Daily Living? No Information not available 02/13/2024 What Is Your Housing Situation Today? I Have Housing. Information not available 02/13/2024 How Often In The Past Year Have You Used Marijuana (including Smoking, Vaping, Dabbing, Or Edibles)? Never Information not available 02/13/2024 How Often In The Past Year Have You Used Prescription Medications That Were Not Prescribed To You? Never Information n ot available 02/13/2024 How Often In The Past Year Have You Taken Your Own Prescription Medication More Than The Way It Was Prescribed Or For Different Reasons Than Its Intended Purpose? Never Information no t available 02/13/2024 How Often In The Past Year Have You Used Other Drugs (for Example, Heroin, Cocaine, Meth, Salvia, Inhalants)? Never Information not available 02/13/2024 Have You Ever Used IV Drugs? No Information not available 02/13/2024 Date Of Most Recent SBINS 02/13/2024 Information not available 02/13/2024 What Was The Date Of Your Most Recent Tobacco Screening? 02/13/2024 Information not available 02/13/2024 At What Age Did You Start Smoking Tobacco? 17 Information not available 06/21/2023 How Much Tobacco Do You Smoke? 0.5 PPD Information not available 02/13/2024 Has Tobacco Cessation Counseling Been Provided? Yes Information not available 02/13/2024 On What Date Was Tobacco Cessation Counseling Provided? 02/13/2024 Information not available 02/13/2024 Do You Or Have You Ever Used Any Other Forms Of Tobacco Or Nicotine? No Information not available 02/13/2024 Sex: Female Functional Status None recorded. Mental Status None recorded. Family History Nothing Reported. Medical History No medical history recorded. Gynecological History Statement/Question Response Abnormal Pap N Date of Last Pap Smear 05/23/2022 Most Recent Mammogram Obstetrics History GPAL:G 0 P 0 0 0 0 Past Encounters Encounter ID Performer Location Encounter Start Date Encounter Closed Date Diagnosis/Indication Diagnosis SNOMED-CT Code [id number] BIRDIE [address] [address] 06/21/2023 14:48:38 06/21/2023 15:25:40 Type 2 diabetes mellitus without complication 069986222 Postconcus genoveva syndrome 40572832 [id number] BIRDIE EVANGELISTA[address] [address] 08/13/2023 12:50:48 08/13/2023 14:09:37 Iron deficiency anemia 33293304 Type 2 jesus betes mellitus without complication 110253097 Hypothyroidism 32137993 White matter disease 160 [id number] 04 Postconcus genoveva syndrome 94066177 [id number] PINEDA GREENWOOD[address] [address] 10/02/2023 12:45:41 10/02/2023 13:12:53 Hypothyroidism 51755461 [id number] BIRDIE [address] [address] 02/13/2024 12:47:02 02/13/2024 14:20:52 Screening for cardiovascular system disease 863843017 Adult heal th examination 920854705 Obesity 811426355 Type 2 jesus betes mellitus without complication 816196045 Iron defic iency anemia 79044653 Hypothyroidism 64963901 Health Concerns Section Related Observation LastModified by Organization Detai ls LastModified Time None Recorded Concern Status LastModified by Organization Details LastModified Time None Recorded Advance Directives Directive None Recorded Payers Encounter Date Sequence Insurance Name Policy Number Policy Villa Covered Member ID Villa Member ID Guarantor Name 06/21/2023 1 [facility] [id number] Marsha Storm [id number] Marsha Storm 06/21/2023 2 [employer] (MEDICAID) Marsha Storm [id number] Marsha Storm 08/13/2023 1 [facility] [place] [facility] [place] [facility] (O) [id number] Marsha Storm [id number] Marsha Storm 08/13/2023 2 [employer] [facility] (MEDICAID) Marsha Storm [id number] Marsha Storm 10/02/2023 1 [facility] [id number] Marsha Storm [id number] Marsha Storm 10/02/2023 2 [employer] (MEDICAID) Marsha Storm [id number] Marsha Storm Notes Date Note Type Note Provider Name and Address Organization Details Recorded Time 06/21/2023 text/html HPI Notes: Ifeanyi giron presents for follow-up ER visit. She went to [facility] ER on June 01 as she had a bad fall and hit her head. She was waiting on getting a CT scan done but was having issues due to insurance. She had the CT scan done which did not show any acute changes but did show some white matter changes recommended to get an MRI. Patient notes that it has now been a month she is still having issues with a headache. She has pain in her neck up to the bottom of her head. She notes that her muscles are really tight. When she had the fall she did not lose consciousness or have vomiting. She was dazed and saw stars. She notes that now she looks up she will feel slightly dizzy but that does go away. She is doing rest as appropriate. She denies vomiting, vision changes and any new changes in her sleep patterns. [address], [place], [address], [facility]. 06/21/2023 15:36:51 08/13/2023 text/html HPI Notes: Ifeanyi giron presents for follow-up. Her blood pressure is well-controlled on her current medications. She denies chest pains, palpitations, shortness of breath, dizziness and edema. She is still getting some intermittent headaches since having her concussion. She notes that she has tightness of her right upper trap that radiates up to the right side of her head. It is relieved with massage. She has not tried the muscle relaxers yet. She did not have a brain MRI done as she had to cancel due to weather. She continues to smoke less than a half a pack per day. She is not ready to quit. She has been taking the iron supplements daily and tolerating this well without constipation. She notes that she used to sleep all day and now she is not even having to take a nap. She is due for blood work today. She does not have any other concerns. [address], [place], [address], [facility]. 08/13/2023 15:25:29 OBGyn Episode No OBEpisode recorded.
--- OUTSIDE RECORDS SUMMARY | 2024-02-13 16:37 | XMS_ITS | Encounter Summary ---
Author Organization [facility] Address [address] [place] [address] Care Team Providers Care Extract Puller Name Role Phone Unavailable Primary Care Provider Unavailabl e Encounter Details Date Type Department Care Team (Late st Contact Info) Description 05/23/2005 Results Only [facility] - Maple conversion [address] [place] [address] Abhay Howard MD Social History Tobacco Use Types Packs/Day Years Used Date Smoking Tobacco: Never Assessed Sex and Gender Information Value Date Recorded Sex Assigned at Not on file Gender Identity Not on file Sexual Orientation Not on file documented as of this encounter Plan of Treatment Not on file documented as of this encounter Procedures Procedure Name Priority Date/Time Associated Diagnosis Comments CYTOPATHOLOGY Routine 05/23/2005 0:00 EDT documented in this encounter Results * CYTOPATHOLOGY (05/23/2005 0:00 EDT) Pathology Report: CYTOPATHOLOGY REPORT Reports generated via electronic interface contain original data; however they are lacking the format of the original report. Caution should be taken when reading/interpreti ng unformatted reports. Name: ? SANDRA ROJO ? Accession #: ? [id number] : ? 1960 (Age: 44) ??F ?Collect Date: ? 05/23/2005 Location: ? [facility] ? Receive Date: ? 05/25/2005 Provider: ?ABHAY HOWARD MD Copy to: ? Specimen/Source: ?ThinPrep Pap Test, Cervix, processed on [employer] ThinPrep Imaging System, with manual evaluation Last Menstrual Period: ? Other: ? HPVA - HPV testing requested if ASC-US on the current ThinPrep Pap test. ? SPECIMEN ADEQUACY ? Satisfactory for Evaluation - transformation zone component present GENERAL CATEGORIZATION ? Negative for Intraepithelial Lesion or Malignancy ? Document reviewed and electronically signed by: ? TONIA Patterson(ASCP) ? Report Date: ??05/31/2005 15:05 End of Report [facility] 05/23/2005 05/25/2005 Abhay Howard MD PATHOLOGY ORDERABLES [facility] [address] [place] [address] documented in this encounter Visit Diagnoses Not on filedocumented in this encounter
[2024-02-13 19:34] LABS: Abs Immature Grans 0.01 10^3/uL (0.0-0.06); Absolute Basophil Count 0.04 10^3/uL (0.0-0.2); Absolute Eosinophil Count 0.16 10^3/uL (0.0-0.7); Absolute Lymphocyte Count 1.15 10^3/uL (1.2-3.4); Absolute Monocyte Count 0.35 10^3/uL (0.1-0.8); Absolute Neutrophil Count 1.51 10^3/uL (1.2-6.7); Basophils % 1.2 %; HCT 37.9 % (36.0-46.0); HGB 12.9 g/dL (11.2-15.7); Immature Grans % 0.3 %; Lymphocytes % 35.7 %; MCH 29.4 pg (27.0-33.0); MCV 86 fL (80-95); MPV 11.4 fL (8.0-11.0); Monocytes % 10.9 %; Neutrophils % 46.9 %; RBC 4.39 10^6/uL (3.93-5.22); RDW 14.6 % (11.7-14.6); RDW-SD 46.2 fL; WBC 3.22 10^3/uL (4.4-10.8)
[2024-02-13 20:02] LABS: Iron 97 ug/dL (50-170); Total Iron Binding Capacity 420 ug/dL (250-450); Transferrin Sat 23 % (15-50)
[2024-02-13 20:21] LABS: ALT 40 U/L (14-59); AST 41 U/L (15-37); Albumin 3.7 g/dL (3.4-5.0); Alkaline Phosphatase 94 U/L (46-116); Anion Gap 5.4 mmol/L (3-11); BUN 9 mg/dL (7-18); Bilirubin, Total 0.82 mg/dL (0.2-1.0); CO2 27.6 mmol/L (21.0-32.0); CREATININE 0.8 mg/dL (0.55-1.02); Calcium 9.4 mg/dL (8.5-10.1); Chloride 103 mmol/L (98-107); Estimated GFR 83.26 (mL/min/1.73m2); Ferritin 54 ng/mL (8-252); Glucose 108 mg/dL (74-106); Potassium 3.3 mmol/L (3.5-5.1); Sodium 136 mmol/L (136-145); TSH (W/Ref FT4) 1.65 uIU/mL (0.36-3.74); Total Protein 7.3 g/dL (6.4-8.2)
[2024-02-13 20:33] LABS: Platelet Count 99 10^3/uL (130-400)
[2024-02-14 21:28] LABS: HIV-1/2 Ag & Ab Screen Negative (Negative)
[2024-02-14 22:03] LABS: Hepatitis C Ab w Rflx HCV PCR Negative (Negative)
== END 2024-02-13 16:36 | disposition home or self-care (01) ==
LOC: NCHCN 16:35
PROVIDERS: PCP Nurse Practitioner Family; Visit Provider Physician Assistant
DX: D50.9 Iron deficiency anemia, unspecified (principal); E03.9 Hypothyroidism, unspecified; Z11.4 Encounter for screening for human immunodeficiency virus [HIV]; Z11.59 Encounter for screening for other viral diseases
CPT/HCPCS: 80053; 86803; 87389; 82728; 83540; 83550; 84443; 85025

== ENCOUNTER 2024-03-17 14:56 | Outpatient (REF) | payer MEDICARE, MEDICAID, SELFPAY ==
--- OUTSIDE RECORDS SUMMARY | 2024-03-17 14:59 | XMS_ITS | Encounter Summary ---
Author Organization [facility] Address [address] [place] [address] Care Team Providers Care Administrative Job Titles Name Role Phone Agus Kumar MD Primary Care Provider [phone] Encounter Details Date Type Department Care Team (Late st Contact Info) Description 02/14/2024 Lab Requisition [facility] Pathology & Laboratory Medicine - [address] [address] Outr Resulting Lab, Provider Social History Tobacco Use Types Packs/Day Years Used Date Smoking Tobacco: Never Assessed Sex and Gender Information Value Date Recorded Sex Assigned at Not on file Gender Identity Not on file Sexual Orientation Not on file documented as of this encounter Plan of Treatment Not on file documented as of this encounter Procedures Procedure Name Priority Date/Time Associated Diagnosis Comments HEPATITIS C AB W REFLEX TO HCV RNA BY PCR Routine 02/13/2024 14:10 EDT documented in this encounter Results * HEPATITIS C AB W REFLEX TO HCV RNA BY PCR (02/13/2024 14:10 EDT) Hep C Antibody Negative Negative 02/14/2024 21:59 EDT [facility] Blood VENOUS BLOOD / Unknown 02/13/2024 14:10 EDT 02/14/2024 19:51 EDT Provider Outr Resulting Lab CHEMISTRY & BLOOD GAS ORDERABLES [facility] [address] [place] [address] documented in this encounter Visit Diagnoses Not on filedocumented in this encounter Care Teams Administrative Job Titles Relationship Specialty Start Date End Date Agus Kumar MD [address] [place] [address] PCP - General 06/18/15 documented as of this encounter
--- OUTSIDE RECORDS SUMMARY | 2024-03-17 14:59 | XMS_ITS | Encounter Summary ---
Author Organization [facility] Address [address] [place] [address] Care Team Providers Care Chart Calculator Name Role Phone Agus Kumar MD Primary Care Provider [phone] Encounter Details Date Type Department Care Team (Late st Contact Info) Description 02/14/2024 Lab Requisition [facility] Pathology & Laboratory Medicine - [address] [address] Outr Resulting Lab, Provider Social History Tobacco [...] Procedure Name Priority Date/Time Associated Diagnosis Comments HIV 1/2 ANTIGEN AND ANTIBODY, 4TH GENERATION Routine 02/13/2024 14:10 EDT documented in this encounter Results * HIV 1/2 ANTIGEN AND ANTIBODY, 4TH GENERATION (02/13/2024 14:10 EDT) HIV 1 and 2 Antibody/p24 Antigen, 4th Generation Negative Negative 02/14/2024 21:23 EDT [facility] Comment:If acute HIV-1 infec tion is suspected in a high risk patient, submit plasma specimen for HIV-1 RNA quantitation test. Blood VENOUS BLOOD / Unknown 02/13/2024 14:10 EDT 02/14/2024 19:51 EDT Narrative [facility] - 02/14/2024 21:23 EDT Fourth Generation assay performed on the Siemens Centaur XPT. Provider Outr Resulting Lab IMMUNOLOGY A ND SEROLOGY ORDERABLES [facility] [address] [place], [place] [address] documented in this encounter Visit Diagnoses Not on filedocumented in this encounter Care Teams Chart Calculator Relationship Specialty Start Date End Date Agus Kumar MD [address] [place] [address] PCP - General 06/18/15 documented as of this encounter
--- OUTSIDE RECORDS SUMMARY | 2024-03-17 14:59 | XMS_ITS | Encounter Summary ---
Author Organization [facility] Address [address] [place] [address] Care Team Providers Care Hip Hop Dancer Name Role Phone Unavailable Primary Care Provider Unavailabl e Encounter Details Date Type Department Care Team (Late st Contact Info) Description 05/23/2005 Results Only [facility] - Maple conversion [address] [place] [address] Abhay Howard MD Social History Tobacco Use [...] ? SANDRA ROJO ? Accession #: ? [id number] : ? 1960 (Age: 44) ??F ?Collect Date: ? 05/23/2005 Location: ? [facility] ? Receive Date: ? 05/25/2005 Provider: ?ABHAY HOWARD MD Copy to: ? Specimen/Source: ?ThinPrep Pap Test, Cervix, processed on [employer] ThinPrep Imaging System, with manual evaluation Last [...] Howard MD PATHOLOGY ORDERABLES [facility] [address] [place] [address] documented in this encounter Visit Diagnoses Not on filedocumented in this encounter
--- OUTSIDE RECORDS SUMMARY | 2024-03-17 14:59 | XMS_ITS | Referral Summary ---
Author Organization [facility] Address [address] [place] [address] Care Team Providers Care Job Site Supervisor Name Role Phone Agus Kumar MD Primary Care Provider [phone] Encounters Date Type Department Care Team Description 02/14/2024 Lab Requisition [facility] [address] [address] Outr Resulting Lab, Provider 02/14/2024 Lab Requisition [facility] & [facility] [address] [place] [address] Outr Resulting Lab, Provider from Last 3 Months Social History Tobacco Use Types Packs/Day Years Used Date Smoking Tobacco: Never Assessed Sex and Gender Information Value Date Recorded Sex Assigned at Not on file Gender Identity Not on file Sexual Orientation Not on file Plan of Treatment Not on file Procedures Procedure Name Priority Date/Time Associated Diagnosis Comments HEPATITIS C AB W REFLEX TO HCV RNA BY PCR Routine 02/13/2024 14:10 EDT HIV 1/2 ANTIGEN AND ANTIBODY, 4TH GENERATION Routine 02/13/2024 14:10 EDT from Last 3 Months Results * HEPATITIS C AB W REFLEX TO HCV RNA BY PCR (02/13/2024 14:10 EDT) Hep C Antibody Negative Negative 02/14/2024 21:59 EDT [facility] Blood VENOUS BLOOD / Unknown 02/13/2024 14:10 EDT 02/14/2024 19:51 EDT Provider Outr Resulting Lab CHEMISTRY & BLOOD GAS ORDERABLES Performing Organization Address [facility] Co de Phone Number [facility] [address] [place], [place] [phone] * HIV 1/2 ANTIGEN AND ANTIBODY, 4TH GENERATION (02/13/2024 14:10 EDT) HIV 1 and 2 Antibody/p24 Antigen, 4th Generation Negative Negative 02/14/2024 21:23 EDT [facility] Comment:If acute HIV-1 infec tion is suspected in a high risk patient, submit plasma specimen for HIV-1 RNA quantitation test. Blood VENOUS BLOOD / Unknown 02/13/2024 14:10 EDT 02/14/2024 19:51 EDT Narrative [facility] - 02/14/2024 21:23 EDT Fourth Generation assay performed on the [employer] XPT. Provider Outr Resulting Lab IMMUNOLOGY A ND SEROLOGY ORDERABLES Performing Organization Address City/[facility] Co de Phone Number [facility] [address] [place], [place] [phone] from Last 3 Months Care Teams Job Site Supervisor Relationship Specialty Start Date End Date Agus Kumar MD [address] [place] [address] PCP - General 06/18/15
--- OUTSIDE RECORDS SUMMARY | 2024-03-17 14:59 | XMS_ITS | Clinical Summary ---
Author Organization [facility] Address [address] [place] [address] Care Team Providers Care Assignment Desk Editor Name Role Phone Agus Kumar MD Primary Care Provider [phone] Encounters Date Type Department Care Team Description 02/14/2024 Lab Requisition [facility] Pathology & Laboratory [address] [address] Outr Resulting Lab, Provider 02/14/2024 Lab Requisition [facility] Pathology & Laboratory [facility] [address] [place] [address] Outr Resulting Lab, Provider from Last 3 Months Social History Tobacco Use Types Packs/Day Years Used Date Smoking Tobacco: Never Assessed Sex and Gender Information Value Date Recorded Sex Assigned at Not on file Gender Identity Not on file Sexual Orientation Not on file Plan of Treatment Health Maintenance Due Date Last Done Comments RSV Immunization ( o r 60+ Years) (1 - 1-dose 60+ series) 2021 COVID-19 Vaccine (2022-24 season) 2023 Hepatitis C Screen Completed 02/13/2024 Procedures Procedure Name Priority Date/Time Associated Diagnosis Comments HEPATITIS C AB W REFLEX TO HCV RNA BY PCR Routine 02/13/2024 14:10 EDT HIV 1/2 ANTIGEN AND ANTIBODY, 4TH GENERATION Routine 02/13/2024 14:10 EDT from Last 3 Months Results * HEPATITIS C AB W REFLEX TO HCV RNA BY PCR (02/13/2024 14:10 EDT) Hep C Antibody Negative Negative 02/14/2024 21:59 EDT [facility] Blood VENOUS BLOOD / Unknown 02/13/2024 14:10 EDT 02/14/2024 19:51 EDT Provider Outr Resulting Lab CHEMISTRY & BLOOD GAS ORDERABLES Performing Organization Address [facility]/ZIP Co de Phone Number [facility] [address] [place], [place] [address] * HIV 1/2 ANTIGEN AND ANTIBODY, 4TH GENERATION (02/13/2024 14:10 EDT) HIV 1 and 2 Antibody/p24 Antigen, 4th Generation Negative Negative 02/14/2024 21:23 EDT [facility] Comment:If acute HIV-1 infec tion is suspected in a high risk patient, submit plasma specimen for HIV-1 RNA quantitation test. Blood VENOUS BLOOD / Unknown 02/13/2024 14:10 EDT 02/14/2024 19:51 EDT Narrative [facility] - 02/14/2024 21:23 EDT Fourth Generation assay performed on the [employer] XPT. Provider Outr Resulting Lab IMMUNOLOGY A ND SEROLOGY ORDERABLES Performing Organization Address City/[facility]/ZIP Co de Phone Number [facility] [address] [place], [place] [phone] from Last 3 Months Care Teams Assignment Desk Editor Relationship Specialty Start Date End Date Agus Kumar MD [address] [place] [address] PCP - General 06/18/15
--- OUTSIDE RECORDS SUMMARY | 2024-03-17 14:59 | XMS_ITS | Continuity of Care Document ---
Author Organization [facility] Address [address] [place] [address] Care Team Providers Care Real Estate Subagent Name Role Phone KERA EVANGELISTA Primary Care Provider [employer] [employer] Instructor Assessment No assessment recorded. Plan of Treatment Reminders Order Date Submit Date Provider Last Modified By Organization Details Last Modified Time Details Appointments Nurse Visit 20 2023 09:00A M Not available Not available Not available Follow Up 30 2024 09:30A M Not available Not available Not available Lab CBC w/ auto diff 2023 024 [facility] (Registration ), [address] [place] [address] [place], [address], 03/17/2024 08:48:36 vitamin B12 + folate, serum or blood 2023 024 [facility] (Registration ), [address] [place] [address] [place], [address], 03/17/2024 09:40:53 venipunct ure 2023 024 [facility] (Registration ), [address] [place] [address] [place], [address], 03/17/2024 09:45:32 Referral None recorded. Procedures None recorded. Surgeries None recorded. Imaging None recorded. Medication Orders None recorded. Patient TargetsNo targets recorded. Patient Instructions Encounter Date Encounter Id Patient Instructions Last Modified By Organization Details Last Modified Time 03/17/2024 [id number] specimen collection & handling* Not available 03/17/2024 09:03:49 Reason for Referral None Reported. Results Created Date Observation Date Name Description Value Unit Range Abnormal Flag LastModifiedBy Organization Detail LastModifiedTime 03/17/20 24 03/17/2024 speci men colle ction & handl ing* Specimen collection and handling performed today: Yes Not Available [facility] [address], [place], [address], 03/17/2024 09:02:50 Result Notes None recorded. Problems Name Status Onset Date Resolution Date Notes Provider Name and Address Organization Details Recorded Time Severe obesity Active 201808/15/2022 - Comments only - Kera BENNETT - Congratulated patient on weight loss keep up the good work Problem Code: E66.01; Problem Code Type: ICD-10; Not Available [facility] 3 05:38:56 Essential hypertension Active 201802/14/2023 - Comments only - Kera BENNETT - Blood pressure well controlled continue current medications. Checking CMP. Problem Code: I10; Problem Code Type: ICD-10; Not Available [facility] 3 05:38:56 Low back pain Active 2018 Problem Code: M54.5; Problem Code Type: ICD-10; Not Available [facility] 3 05:38:57 Hypothyroidis m Active 201802/14/2023 - Comments only - Kera BENNETT - Continue current dose of levothyroxine . Thyroid last checked in September 2022. Problem Code: E03.9; Problem Code Type: ICD-10; Not Available [facility] 3 05:38:57 Headache Active 2018 Problem Code: R51; Problem Code Type: ICD-10; Not Available [facility] 3 05:38:57 Gastroesophag eal reflux disease without esophagitis Active 2018 Problem Code: K21.9; Problem Code Type: ICD-10; Not Available [facility] 3 05:38:57 Nicotine dependence Active 201802/14/2023 - Comments only - Kera BENNETT - Patient states that she is a light smoker and is not ready to quit at this time Problem Code: F17.200; Problem Code Type: ICD-10; Not Available [facility] 3 05:38:57 Vitamin D deficiency Active 2018 Problem Code: E55.9; Problem Code Type: ICD-10; Not Available [facility] 3 05:38:57 Type 2 diabetes mellitus without complication Active 201802/15/2022 - Comments only - Kera BENNETT - A1c decreased to 6.8. Continue current medications. Keep eye exam as scheduled. Patient refuses foot exam. Discussion about proper foot care. Problem Code: E11.9; Problem Code Type: ICD-10; Not Available [facility] 3 05:38:58 Hyperlipidemi a Active 201801/17/2021 - Comments only - Delmi Monroy PHYSIOLOGIST - Tolerating Crestor. Update lipid panel. Problem Code: E78.5; Problem Code Type: ICD-10; Not Available [facility] 3 05:38:58 Counseling Active 201801/08/2019 - Comments only - Delmi Monroy PHYSIOLOGIST - Reviewed records, meds, squared away her DM meds (should only be on Janumet). Refills sent to [facility]. Problem Code: Z71.89; Problem Code Type: ICD-10; Not Available [facility] 3 05:38:58 Allergic rhinitis Active 202008/15/2022 - Comments only - Kera BENNETT - I suspect that her symptoms are more related to allergies and in the past it seems as though she had relief from the Pataday eyedrops. Prescription sent into pharmacy. Continue with Flonase. Problem Code: J30.9; Problem Code Type: ICD-10; Not Available [facility] 3 05:38:58 High enzyme level in serum Active 2021 FIB4 4.06 02/14/[address], [place], [address] , [facility]. 4 16:55:09 Iron deficiency anemia Active 2022 Problem Code: D50.9; Problem Code Type: ICD-10; Not Available [facility] 3 05:38:58 Adult health examination Active 2022 Problem Code: Z00.00; Problem Code Type: ICD-10; Not Available [facility] 3 05:38:59 Thyrotoxicosi s Completed 201804/24/2023 Problem Code: E05.90; Problem Code Type: ICD-10; Not Available [facility] 3 05:39:27 Blood glucose outside reference range Completed 201812/15/2018 Problem Code: R73.09; Problem Code Type: ICD-10; Not Available [facility] 3 05:39:32 Anemia Completed 202204/24/2023 Problem Code: D64.9; Problem Code Type: ICD-10; Not Available [facility] 3 05:39:36 Major depression, single episode Completed 201801/05/2019 Problem Code: F32.9; Problem Code Type: ICD-10; Not Available [facility] 3 05:39:37 Postconcussio n syndrome Active [address], [place], [address] , [facility] 3 15:15:22 Neck pain Active 202205/20/2023 - Comments only - Edith Worrell PHYSIOLOGIST - Neck pain and headache s/p fall on Saturday. Was sitting on a chair that collapsed and she hit her head and back on the chest freezer just behind her. Feels achy all over, has been taking acetaminphen without signficant relief Problem Code: M54.2; Problem Code Type: ICD-10; Not Available [facility] 4 05:37:26 Tremor Active 202205/20/2023 - Comments only - Edith Worrell PHYSIOLOGIST - Has been having shaking spells which started prior to her fall. Reports she drinks Iced coffee all day long from first waking to just before bed. Has episodes where she is shaking all over. Recommend try to decrease her caffeine, follow up with PCP in one week. Sooner if needed Problem Code: R25.1; Problem Code Type: ICD-10; Not Available [facility] 4 05:37:26 White matter disease Active 2022 Problem Code: R90.82; Problem Code Type: ICD-10; Not Available [facility] 4 05:37:26 Thrombocytope nieves disorder Active 2023 KERA EVANGELISTA PA-C [address], [place], [address] , [facility] 4 16:54:52 Problem Notes None recorded. Procedures Surgical History Date Name Laterality Status Provider Name and Address Organization Details Recorded Time 2 Date of Last Pap Smear completed Layne Sarmiento RN [facility], [facility] 09/30/2023 11:06:22 Colonoscopy completed KATY Martinez, [facility] 09/30/2023 11:08:24 Imaging Results None recorded. Procedure Notes None recorded. Medical Equipment None Reported. Allergies Allergen ID Allergen Name Allergen Category Reaction Reaction Severity Criticality Documentation Date Start Date Code Code System Note Provider Name and Address Organization Details Recorded Time 61395 acetamino phen / oxycodone medicatio n hives moderate Not available 06/07/20232018 36985 3 RxNorm hives Aller gyCod e: '7224 62124 12'; Aller gyNam e: 'PERC OCET' ; Aller gyCon ceptT ype: 'NDC' ; Not Available [facility] 3 16:18:36 Medications Name Sig Start Date [...] Available Not Available No t Available Vitals None Recorded Social History Question Answer Notes LastModified by Organizat ion Details LastModified Time Tobacco Smoking Status Current Every Day Smoker PINEDA GREENWOOD [place] null, [place] - [facility]. 06/21/2023 15:00:37 Would You Say That, In [...] Age Did You Start Smoking Tobacco? 17 [email or web address] Information not available 06/21/2023 How Much Tobacco [...] Encounter Closed Date Diagnosis/Indication Diagnosis SNOMED-CT Code [id number] JESUS LUTHERULTONKATHERINE [address] [address] 03/17/2024 08:48:20 03/17/2024 09:04:10 Thrombocytopenic disorder [id number] Health Concerns Section Related Observation LastModified by Organization Detai ls LastModified Time None Recorded Concern Status LastModified by Organization Details LastModified Time None Recorded Payers Encounter Date Sequence Insurance Name Policy Number Policy [place] Covered Member ID Villa Member ID Guarantor Name 03/17/2024 2 [facility] (MEDICAID) Marsha Storm [id number] Marsha Storm 03/17/2024 1 [facility] (MEDICARE REPLACEMENT HMO) [id number] Marsha Storm [id number] Marsha Storm OBGyn Episode No OBEpisode recorded.
--- OUTSIDE RECORDS SUMMARY | 2024-03-17 14:59 | XMS_ITS | Data Portability ---
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 Plan of Treatment Reminders Order Date Submit Date Provider Last Modified By Organization Details Last Modified Time Details Appointments Nurse Visit 2023 09:00A M Not available Not available Not available Follow Up 30 2024 09:30A M Not available Not available Not available Lab hemoglobi n A1C, fingersti ck 2022 023 [email or web address] [facility], [address] [place] [address], [place], [address], 06/21/2023 15:17:10 BMP, serum or plasma [address] [facility] (Registration ), [address] [place] [address] [place], [address], 08/20/2023 08:03:03 HbA1c (hemoglob in A1c), blood [address] [facility] (Registration ), [address] [place] [address] [place], [address], 08/20/2023 08:03:03 TSH, serum, reflex free T4 - Specimen collected in the office at [facility]. [address] [facility] (Registration ), [address] [place] [address] [place], [address], 08/20/2023 08:03:03 CBC w/ auto diff - Specimen collected in the office at [facility]. 2023 024 FAMILIA [facility] (Registration ), [address] [place] [address] [place], [address], 08/13/2023 19:40:38 iron + TIBC + ferritin, serum - Specimen collected in the office at [facility]. [address] [facility] (Registration ), [address] [place] [address] [place], [address], 08/20/2023 08:03:03 TSH, serum, reflex free T4 [address] [facility] (Registration ), [address] [place] [address] [place], [address], 10/03/2023 07:36:24 HIV (1+2) Ab screen, serum [address] [facility] (Registration ), [address] [place] [address] [place], [address], 02/18/2024 07:56:03 hepatitis C virus Ab, serum [address] [facility] (Registration ), [address] [place] [address] [place], [address], 02/18/2024 07:56:16 lipid panel, serum 2023 025 [email or web address] [facility] (Registration ), [address] [place] [address] [place], [address], 02/13/2024 17:53:55 hemoglobi n A1C, fingersti ck 2023 024 [email or web address] [facility], [address] [place] [address], [place], [address], 02/13/2024 13:57:14 TSH, serum, reflex free T4 [address] [facility] (Registration ), [address] [place] [address] [place], [address], 02/14/2024 13:43:14 iron + TIBC + ferritin, serum [address] [facility] (Registration ), [address] [place] [address] [place], [address], 02/14/2024 13:43:04 CBC w/ auto diff 2023 024 [facility] (Registration ), [address] [place] [address] [place], [address], 02/13/2024 20:34:27 CMP, serum or plasma 2023 024 [facility] (Registration ), [address] [place] [address] [place], [address], 02/13/2024 20:27:27 CBC w/ auto diff 2023 024 [facility] (Registration ), [address] [place] [address] [place], [address], 03/17/2024 08:48:36 vitamin B12 + folate, serum or blood 2023 024 [facility] (Registration ), [address] [place] [address] [place], [address], 03/17/2024 09:40:53 venipunct ure 2023 024 [facility] (Registration ), [address] [place] [address] [place], [address], 03/17/2024 09:45:32 Referral None recorded. Procedures None recorded. Surgeries None recorded. Imaging MRI, brain, w/wo contrast - post concussio n symptoms after fall in may also CT scan showed moderate white matter disease r/o MS 2023 024 [email or web address], [address], [place], [address], 08/13/2023 16:07:40 Medication Orders cyclobenz aprine 5 mg tablet 2022 023 [id number], [address], [place], [address], 06/21/2023 15:17:13 Patient TargetsNo targets recorded. Patient Instructions Encounter Date Encounter Id Patient Instructions Last Modified By Organization Details Last Modified Time 06/21/2023 [id number] {{ ([facility])* [facility] ([facility]) [facility] ([facility]) [facility] ([facility]) [facility] ([facility]) [facility] ([facility]) [facility]}} will contact you to schedule {{bone density [...] breaks frequently Not available 06/21/2023 15:23:03 08/13/2023 [id number] You had blood work done today. Please allow up to 2 weeks to hear about results. {{ ([facility])* [facility] ([facility]) [facility] ([facility]) [facility] ([facility]) [facility] ([facility]) [facility] ([facility]) [facility]}} will contact you to schedule {{bone density CT scan Heart Monitor mammogram MRI* Ultrasound Stress Test Xray}}. If you do not receive a call in 7-10 days please contact the office. continue current medications Call with any questions or concerns Not available 08/13/2023 13:46:16 02/13/2024 [id number] diet [email or web address] Not available 02/12 13:57:15 exercise [email or web address] Not available 2023 13:57:15 You had blood work done today. Please allow up to 2 weeks to hear about results. continue current medications come to next appointment fasting (water or black coffee only for at least 8 hours, no food) so we can check your cholesterol Call with any questions or concerns Not available 02/13/2024 14:01:35 03/17/2024 [id number] specimen collection & handling* Not available 03/17/2024 09:03:49 Reason for Referral None Reported. Results Created Date Observation Date Name Description Value Unit Range Abnormal Flag LastModifiedBy Organization Detail LastModifiedTime 06/01/2006/01/2023 hemog lobin (Hb), blood hemoglobin (Hb), blood 11.7 g/dL Not Available Not Available 02/28/2024 12:23:54 06/01/2006/01/2023 CBC monocyte % 9.7 % Not Available No t Available 02/28/2024 12:23:49 06/01/2006/01/2023 CBC PMN % 1.1 % Not Available Not Av ailable 02/28/2024 12:23:49 06/01/2006/01/2023 CBC WBC 3.8 10*3/ mm3 Not Available Not Available 02/28/2024 12:23:49 06/01/20 23 06/01/2023 CBC hematocrit, automated count, blood 36.8 % Not Available Not Available 02/28/2024 12:23:49 06/01/2006/01/2023 CBC MCH 25.5 pg Not Available Not Av ailable 02/28/2024 12:23:49 06/01/20 23 06/01/2023 CBC MCHC RBC 31.8 g/dL Not Available Not Available 02/28/2024 12:23:49 11/04/06/01/2023 CBC MCV, blood 80.3 fL Not Available No t Available 02/28/2024 12:23:49 06/01/2006/01/2023 CBC platelet cnt 131 10*3/ micro liter Not Available Not Available 02/28/2024 12:23:49 06/01/20 23 06/01/2023 CBC RBC count, blood 4.6 10*6/ mm3 Not Available Not Available 02/28/2024 12:23:49 06/01/2006/01/2023 CBC RDW 23.9 % Not Available Not Av ailable 02/28/2024 12:23:49 06/21/2006/21/2023 hemog lobin A1C, finge rstic k HbA1C 6.4 Not Available [facility] [address] [place] [address], [place], [address], 06/21/2023 15:00:46 08/13/19 24 08/13/2023 COMPL ETE BLOOD COUNT W/DIF F WBC 4.30 10_3/ uL 4.4-10 .8 low Not Available [address] [place], [address] 08/13/2023 19:40:38 08/13/19 24 08/13/2023 COMPL ETE BLOOD COUNT W/DIF F RBC 4.39 10_6/ uL 3.93-5 .22 normal Not Available [address] [place], [address] 08/13/2023 19:40:38 08/13/19 24 08/13/2023 COMPL ETE BLOOD COUNT W/DIF F HGB 12.3 g/dL 11.2-1 5.7 normal Not Available [address] [place], [address] 08/13/2023 19:40:38 08/13/19 24 08/13/2023 COMPL ETE BLOOD COUNT W/DIF F HCT 37.0 % 36.0-4 6.0 normal Not Available [address] [place], [address] 08/13/2023 19:40:38 08/13/19 24 08/13/2023 COMPL ETE BLOOD COUNT W/DIF F MCV 84 fL 80-95 normal Not Available [address] [place], [address] 08/13/2023 19:40:38 08/13/19 24 08/13/2023 COMPL ETE BLOOD COUNT W/DIF F MCH 28.0 pg 27.0-3 3.0 normal Not Available [address] [place], [address] 08/13/2023 19:40:38 08/13/19 24 08/13/2023 COMPL ETE BLOOD COUNT W/DIF F MCHC 33.2 % 32.0-3 6.0 normal Not Available [address] [place], [address] 08/13/2023 19:40:38 08/13/19 24 08/13/2023 COMPL ETE BLOOD COUNT W/DIF F RDW 15.1 % 11.7-1 4.6 high Not Available [address] [place], [address] 08/13/2023 19:40:38 08/13/19 24 08/13/2023 COMPL ETE BLOOD COUNT W/DIF F platelet count 122 10_3/ uL 130-40 0 low Not Available [address] [place], [address] 08/13/2023 19:40:38 08/13/19 24 08/13/2023 COMPL ETE BLOOD COUNT W/DIF F MPV 11.8 fL 8.0-11 .0 high Not Available [address] [place], [address] 08/13/2023 19:40:38 08/13/19 24 08/13/2023 COMPL ETE BLOOD COUNT W/DIF F neutrophils % 44.4 Not Available [address] [place], [address] 08/13/2023 19:40:38 08/13/19 24 08/13/2023 COMPL ETE BLOOD COUNT W/DIF F lymphocytes % 37.2 Not Available [address] [place], [address] 08/13/2023 19:40:38 08/13/19 24 08/13/2023 COMPL ETE BLOOD COUNT W/DIF F monocytes % 11.4 Not Available [address] [place], [address] 08/13/2023 19:40:38 08/13/19 24 08/13/2023 COMPL ETE BLOOD COUNT W/DIF F eosinophils % 4.9 Not Available [address] [place], [address] 08/13/2023 19:40:38 08/13/19 24 08/13/2023 COMPL ETE BLOOD COUNT W/DIF F basophils % 1.6 Not Available [address] [place], [address] 08/13/2023 19:40:38 08/13/19 24 08/13/2023 COMPL ETE BLOOD COUNT W/DIF F immature grans % 0.5 Not Available [address] [place], [address] 08/13/2023 19:40:38 08/13/19 24 08/13/2023 COMPL ETE BLOOD COUNT W/DIF F nucleated RBC 0.0 % 0.0-0. 3 normal Not Available [address] [place], [address] 08/13/2023 19:40:38 08/13/19 24 08/13/2023 COMPL ETE BLOOD COUNT W/DIF F absolute neutrophil count 1.91 10_3/ uL 1.2-6. 7 normal Not Available [address] [place], [address] 08/13/2023 19:40:38 08/13/19 24 08/13/2023 COMPL ETE BLOOD COUNT W/DIF F absolute lymphocyte count 1.60 10_3/ uL 1.2-3. 4 normal Not Available [address] [place], [address] 08/13/2023 19:40:38 08/13/19 24 08/13/2023 COMPL ETE BLOOD COUNT W/DIF F absolute monocyte count 0.49 10_3/ uL 0.1-0. 8 normal Not Available [address] [place], [address] 08/13/2023 19:40:38 08/13/19 24 08/13/2023 COMPL ETE BLOOD COUNT W/DIF F absolute eosinophil count 0.21 10_3/ uL 0.0-0. 7 normal Not Available [address] [place], [address] 08/13/2023 19:40:38 08/13/19 24 08/13/2023 COMPL ETE BLOOD COUNT W/DIF F absolute basophil count 0.07 10_3/ uL 0.0-0. 2 normal Not Available [address] [place], [address] 08/13/2023 19:40:38 08/13/19 24 08/13/2023 BASIC METAB OLIC PANEL calcium 9.8 mg/dL 8.5-10 .1 normal Not Available [address] [place], [address] 08/13/2023 20:10:42 08/13/19 24 08/13/2023 BASIC METAB OLIC PANEL glucose 94 mg/dL 74-106 normal Not Available [address] [place], [address] 08/13/2023 20:10:42 08/13/19 24 08/13/2023 BASIC METAB OLIC PANEL BUN 11 mg/dL 7-18 normal Not Available [facility] [address] [place], [address] 08/13/2023 20:10:42 08/13/19 24 08/13/2023 BASIC METAB OLIC PANEL creatinine 0.8 mg/dL 0.55-1 .02 normal Not Available [address] [place], [address] 08/13/2023 20:10:42 08/13/19 24 08/13/2023 BASIC METAB OLIC PANEL estimated GFR 83.26 mL/min /1.73m 2 Not Available [address] [place], [address] 08/13/2023 20:10:42 08/13/19 24 08/13/2023 BASIC METAB OLIC PANEL sodium 138 mmol/ L 136-14 5 normal Not Available [address] [place], [address] 08/13/2023 20:10:42 08/13/19 24 08/13/2023 BASIC METAB OLIC PANEL potassium 3.6 mmol/ L 3.5-5. 1 normal Not Available [address] [place], [address] 08/13/2023 20:10:42 08/13/19 24 08/13/2023 BASIC METAB OLIC PANEL chloride 102 mmol/ L 98-107 normal Not Available [address] [place], [address] 08/13/2023 20:10:42 08/13/19 24 08/13/2023 BASIC METAB OLIC PANEL CO2 26.8 mmol/ L 21.0-3 2.0 normal Not Available [address] [place], [address] 08/13/2023 20:10:42 08/13/19 24 08/13/2023 BASIC METAB OLIC PANEL anion gap 9.2 mmol/ L 3-11 normal Not Available [address] [place], [address] 08/13/2023 20:10:42 08/13/19 24 08/13/2023 ELAN TIN ferritin 42 NG/mL 8-252 normal Not Available [address] [place], [address] 08/13/2023 20:10:42 08/13/19 24 08/13/2023 TSH (W/RE F FT4) TSH (w/ref FT4) 5.33 uIU/m L 0.36-3 .74 high Not Available [address] [place], [address] 08/13/2023 20:10:42 08/13/19 24 08/13/2023 HEMOG LOBIN A1C hemoglobin A1C 6.5 % <5.7 high Not Available [address] [place], [address] 08/13/2023 20:25:44 08/13/19 24 08/13/2023 BASIC METAB OLIC PANEL calcium 9.8 mg/dL 8.5-10 .1 normal Not Available [address] [place], [address] 08/13/2023 20:29:45 08/13/19 24 08/13/2023 BASIC METAB OLIC PANEL glucose 94 mg/dL 74-106 normal Not Available [address] [place], [address] 08/13/2023 20:29:45 08/13/19 24 08/13/2023 BASIC METAB OLIC PANEL BUN 11 mg/dL 7-18 normal Not Available [address] [place], [address] 08/13/2023 20:29:45 08/13/19 24 08/13/2023 BASIC METAB OLIC PANEL creatinine 0.8 mg/dL 0.55-1 .02 normal Not Available [address] [place], [address] 08/13/2023 20:29:45 08/13/19 24 08/13/2023 BASIC METAB OLIC PANEL estimated GFR 83.26 mL/min /1.73m 2 Not Available [address] [place], [address] 08/13/2023 20:29:45 08/13/19 24 08/13/2023 BASIC METAB OLIC PANEL sodium 138 mmol/ L 136-14 5 normal Not Available [address] [place], [address] 08/13/2023 20:29:45 08/13/19 24 08/13/2023 BASIC METAB OLIC PANEL potassium 3.6 mmol/ L 3.5-5. 1 normal Not Available [address] [place], [address] 08/13/2023 20:29:45 08/13/19 24 08/13/2023 BASIC METAB OLIC PANEL chloride 102 mmol/ L 98-107 normal Not Available [address] [place], [address] 08/13/2023 20:29:45 08/13/19 24 08/13/2023 BASIC METAB OLIC PANEL CO2 26.8 mmol/ L 21.0-3 2.0 normal Not Available [address] [place], [address] 08/13/2023 20:29:45 08/13/19 24 08/13/2023 BASIC METAB OLIC PANEL anion gap 9.2 mmol/ L 3-11 normal Not Available [address] [place], [address] 08/13/2023 20:29:45 08/13/19 24 08/13/2023 ELAN TIN ferritin 42 NG/mL 8-252 normal Not Available [facility] [address] [place], [address] 08/13/2023 20:29:45 08/13/19 24 08/13/2023 TSH (W/RE F FT4) TSH (w/ref FT4) 5.33 uIU/m L 0.36-3 .74 high Not Available [address] [place], [address] 08/13/2023 20:29:46 08/13/19 24 08/13/2023 FREE T4 free T4 1.22 NG/dL 0.76-1 .46 normal Not Available [address] [place], [address] 08/13/2023 20:29:46 08/13/19 24 08/13/2023 IRON/ IBCT iron 96 ug/dL 50-170 normal Not Available [facility] [address] [place], [address] 08/13/2023 21:09:51 08/13/19 24 08/13/2023 IRON/ IBCT total iron binding capacity 470 ug/dL 250-45 0 high Not Available [address] [place], [address] 08/13/2023 21:09:51 08/13/19 24 08/13/2023 IRON/ IBCT transferrin sat 20 % 15-50 normal Not Available [address] [place], [address] 08/13/2023 21:09:51 10/02/19 10/02/2023 TSH (W/RE F FT4) TSH (w/ref FT4) 2.01 uIU/m L 0.36-3 .74 normal Not Available [address] [place], [address] 10/02/2023 20:30:11 02/13/20 24 02/13/2024 IRON AND IBCT iron 97 ug/dL 50-170 normal Not Available [address] [place], [address] 02/13/2024 20:04:25 02/13/20 24 02/13/2024 IRON AND IBCT total iron binding capacity 420 ug/dL 250-45 0 normal Not Available [address] [place], [address] 02/13/2024 20:04:25 02/13/20 24 02/13/2024 IRON AND IBCT transferrin sat 23 % 15-50 normal Not Available [address] [place], [address] 02/13/2024 20:04:25 02/13/20 24 02/13/2024 COMPR EHENS JORGE METAB OLIC PANEL calcium 9.4 mg/dL 8.5-10 .1 normal Not Available [address] [place], [address] 02/13/2024 20:27:27 02/13/20 24 02/13/2024 COMPR EHENS JORGE METAB OLIC PANEL glucose 108 mg/dL 74-106 high Not Available [address] [place], [address] 02/13/2024 20:27:27 02/13/20 24 02/13/2024 COMPR EHENS JORGE METAB OLIC PANEL BUN 9 mg/dL 7-18 normal Not Available [address] [place], [address] 02/13/2024 20:27:27 02/13/20 24 02/13/2024 COMPR EHENS JORGE METAB OLIC PANEL creatinine 0.8 mg/dL 0.55-1 .02 normal Not Available [address] [place], [address] 02/13/2024 20:27:27 02/13/20 24 02/13/2024 COMPR EHENS JORGE METAB OLIC PANEL estimated GFR 83.26 mL/min /1.73m 2 Not Available [address] [place], [address] 02/13/2024 20:27:27 02/13/20 24 02/13/2024 COMPR EHENS JORGE METAB OLIC PANEL total protein 7.3 g/dL 6.4-8. 2 normal Not Available [address] [place], [address] 02/13/2024 20:27:27 02/13/20 24 02/13/2024 COMPR EHENS JORGE METAB OLIC PANEL albumin 3.7 g/dL 3.4-5. 0 normal Not Available [address] [place], [address] 02/13/2024 20:27:27 02/13/20 24 02/13/2024 COMPR EHENS JORGE METAB OLIC PANEL bilirubin, total 0.82 mg/dL 0.2-1. 0 normal Not Available [address] [place], [address] 02/13/2024 20:27:27 02/13/20 24 02/13/2024 COMPR EHENS JORGE METAB OLIC PANEL alk phos 94 U/L 46-116 normal Not Available [address] [place], [address] 02/13/2024 20:27:27 02/13/20 24 02/13/2024 COMPR EHENS JORGE METAB OLIC PANEL sodium 136 mmol/ L 136-14 5 normal Not Available [address] [place], [address] 02/13/2024 20:27:27 02/13/20 24 02/13/2024 COMPR EHENS JORGE METAB OLIC PANEL potassium 3.3 mmol/ L 3.5-5. 1 low Not Available [address] [place], [address] 02/13/2024 20:27:27 02/13/20 24 02/13/2024 COMPR EHENS JORGE METAB OLIC PANEL chloride 103 mmol/ L 98-107 normal Not Available [address] [place], [address] 02/13/2024 20:27:27 02/13/20 24 02/13/2024 COMPR EHENS JORGE METAB OLIC PANEL CO2 27.6 mmol/ L 21.0-3 2.0 normal Not Available [address] [place], [address] 02/13/2024 20:27:27 02/13/20 24 02/13/2024 COMPR EHENS JORGE METAB OLIC PANEL anion gap 5.4 mmol/ L 3-11 normal Not Available [address] [place], [address] 02/13/2024 20:27:27 02/13/20 24 02/13/2024 COMPR EHENS JORGE METAB OLIC PANEL AST 41 U/L 15-37 high Not Available [address] [place], [address] 02/13/2024 20:27:27 02/13/20 24 02/13/2024 COMPR EHENS JORGE METAB OLIC PANEL ALT 40 U/L 14-59 normal Not Available [address] [place], [address] 02/13/2024 20:27:27 02/13/20 24 02/13/2024 ELAN TIN ferritin 54 NG/mL 8-252 normal Not Available [address] [place], [address] 02/13/2024 20:27:27 02/13/20 24 02/13/2024 TSH (W/RE F FT4) TSH (w/ref FT4) 1.65 uIU/m L 0.36-3 .74 normal Not Available [address] [place], [address] 02/13/2024 20:27:28 02/13/20 24 02/13/2024 COMPL ETE BLOOD COUNT W/DIF F WBC 3.22 10_3/ uL 4.4-10 .8 low Not Available [address] [place], [address] 02/13/2024 20:34:27 02/13/20 24 02/13/2024 COMPL ETE BLOOD COUNT W/DIF F RBC 4.39 10_6/ uL 3.93-5 .22 normal Not Available [address] [place], [address] 02/13/2024 20:34:27 02/13/20 24 02/13/2024 COMPL ETE BLOOD COUNT W/DIF F HGB 12.9 g/dL 11.2-1 5.7 normal Not Available [address] [place], [address] 02/13/2024 20:34:27 02/13/20 24 02/13/2024 COMPL ETE BLOOD COUNT W/DIF F HCT 37.9 % 36.0-4 6.0 normal Not Available [address] [place], [address] 02/13/2024 20:34:27 02/13/20 24 02/13/2024 COMPL ETE BLOOD COUNT W/DIF F MCV 86 fL 80-95 normal Not Available [address] [place], [address] 02/13/2024 20:34:27 02/13/20 24 02/13/2024 COMPL ETE BLOOD COUNT W/DIF F MCH 29.4 pg 27.0-3 3.0 normal Not Available [address] [place], [address] 02/13/2024 20:34:27 02/13/20 24 02/13/2024 COMPL ETE BLOOD COUNT W/DIF F MCHC 34.0 % 32.0-3 6.0 normal Not Available [address] [place], [address] 02/13/2024 20:34:27 02/13/20 24 02/13/2024 COMPL ETE BLOOD COUNT W/DIF F RDW 14.6 % 11.7-1 4.6 normal Not Available [address] [place], [address] 02/13/2024 20:34:27 02/13/20 24 02/13/2024 COMPL ETE BLOOD COUNT W/DIF F platelet count 99 10_3/ uL 130-40 0 low Not Available [address] [place], [address] 02/13/2024 20:34:27 02/13/20 24 02/13/2024 COMPL ETE BLOOD COUNT W/DIF F MPV 11.4 fL 8.0-11 .0 high Not Available [address] [place], [address] 02/13/2024 20:34:27 02/13/20 24 02/13/2024 COMPL ETE BLOOD COUNT W/DIF F neutrophils % 46.9 % Not Available [address] [place], [address] 02/13/2024 20:34:27 02/13/20 24 02/13/2024 COMPL ETE BLOOD COUNT W/DIF F lymphocytes % 35.7 % Not Available [address] [place], [address] 02/13/2024 20:34:27 02/13/20 24 02/13/2024 COMPL ETE BLOOD COUNT W/DIF F monocytes % 10.9 % Not Available [address] [place], [address] 02/13/2024 20:34:27 02/13/20 24 02/13/2024 COMPL ETE BLOOD COUNT W/DIF F eosinophils % 5.0 % Not Available [address] [place], [address] 02/13/2024 20:34:27 02/13/20 24 02/13/2024 COMPL ETE BLOOD COUNT W/DIF F basophils % 1.2 % Not Available [address] [place], [address] 02/13/2024 20:34:27 02/13/20 24 02/13/2024 COMPL ETE BLOOD COUNT W/DIF F immature grans % 0.3 % Not Available [address] [place], [address] 02/13/2024 20:34:27 02/13/20 24 02/13/2024 COMPL ETE BLOOD COUNT W/DIF F nucleated RBC 0.0 % 0.0-0. 3 normal Not Available [address] [place], [address] 02/13/2024 20:34:27 02/13/20 24 02/13/2024 COMPL ETE BLOOD COUNT W/DIF F absolute neutrophil count 1.51 10_3/ uL 1.2-6. 7 normal Not Available [address] [place], [address] 02/13/2024 20:34:27 02/13/20 24 02/13/2024 COMPL ETE BLOOD COUNT W/DIF F absolute lymphocyte count 1.15 10_3/ uL 1.2-3. 4 low Not Available [address] [place], [address] 02/13/2024 20:34:27 02/13/20 24 02/13/2024 COMPL ETE BLOOD COUNT W/DIF F absolute monocyte count 0.35 10_3/ uL 0.1-0. 8 normal Not Available [address] [place], [address] 02/13/2024 20:34:27 02/13/20 24 02/13/2024 COMPL ETE BLOOD COUNT W/DIF F absolute eosinophil count 0.16 10_3/ uL 0.0-0. 7 normal Not Available [address] [place], [id number] 02/13/2024 20:34:27 02/13/20 24 02/13/2024 COMPL ETE BLOOD COUNT W/DIF F absolute basophil count 0.04 10_3/ uL 0.0-0. 2 normal Not Available [address] [place], [id number] 02/13/2024 20:34:27 02/13/20 24 02/14/2024 HIV-1 /2 AG AB SCREE N HIV-1/2 Ag Ab screen Negati ve negati ve Not Available [address] [place], [address] 02/17/2024 12:17:21 02/13/20 24 02/14/2024 HEPAT ITIS C AB W RFLX HCV PCR hepatitis C Ab W rflx HCV PCR Negati ve negati ve Not Available [address] [place], [address] 02/17/2024 12:17:22 02/13/20 24 02/13/2024 hemog lobin A1C, finge rstic k hemoglobin A1C 6.6 % <5.7 Not Available [facility] [address] [facility] [address], [place], [address], 02/13/2024 13:44:50 03/17/2003/17/2024 speci men colle ction & handl ing* Specimen collection and handling performed today: Yes Not Available [facility] [address] [facility] [address], [place], [address], 03/17/2024 09:02:50 Result Notes None recorded. Problems Name Status Onset Date Resolution Date Notes Provider Name and Address Organization Details Recorded Time Severe obesity Active 201808/15/2022 - Comments only - Birdie BENNETT - Congratulated patient on weight loss keep up the good work Problem Code: E66.01; Problem Code Type: ICD-10; Not Available [facility] 3 05:38:56 Essential hypertension Active 201802/14/2023 - Comments only - Birdie BENNETT - Blood pressure well controlled continue current medications. Checking CMP. Problem Code: I10; Problem Code Type: ICD-10; Not Available [facility] 3 05:38:56 Low back pain Active 2018 Problem Code: M54.5; Problem Code Type: ICD-10; Not Available [facility] 3 05:38:57 Hypothyroidis m Active 201802/14/2023 - Comments only - Birdie BENNETT - Continue current dose of levothyroxine . Thyroid last checked in September 2022. Problem Code: E03.9; Problem Code Type: ICD-10; Not Available [facility] 3 05:38:57 Headache Active 2018 Problem Code: R51; Problem Code Type: ICD-10; Not Available [facility] 3 05:38:57 Gastroesophag eal reflux disease without esophagitis Active 2018 Problem Code: K21.9; Problem Code Type: ICD-10; Not Available [facility] 3 05:38:57 Nicotine dependence Active 201802/14/2023 - Comments only - Birdie BENNETT - Patient states that she is a light smoker and is not ready to quit at this time Problem Code: F17.200; Problem Code Type: ICD-10; Not Available [facility] 3 05:38:57 Vitamin D deficiency Active 2018 Problem Code: E55.9; Problem Code Type: ICD-10; Not Available [facility] 3 05:38:57 Type 2 diabetes mellitus without complication Active 201802/15/2022 - Comments only - Birdie BENNETT - A1c decreased to 6.8. Continue current medications. Keep eye exam as scheduled. Patient refuses foot exam. Discussion about proper foot care. Problem Code: E11.9; Problem Code Type: ICD-10; Not Available [facility] 3 05:38:58 Hyperlipidemi a Active 201801/17/2021 - Comments only - Delmi Monroy LIME TRIMMER - Tolerating Crestor. Update lipid panel. Problem Code: E78.5; Problem Code Type: ICD-10; Not Available [facility] 3 05:38:58 Counseling Active 201801/08/2019 - Comments only - Delmi Monroy LIME TRIMMER - Reviewed records, meds, squared away her DM meds (should only be on Janumet). Refills sent to [facility]. Problem Code: Z71.89; Problem Code Type: ICD-10; Not Available [facility] 3 05:38:58 Allergic rhinitis Active 202008/15/2022 - Comments only - Birdie BENNETT - I suspect that her symptoms are more related to allergies and in the past it seems as though she had relief from the Pataday eyedrops. Prescription sent into pharmacy. Continue with Flonase. 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 FIB4 4.06 02/14/24 BIRDIE EVANGELISTA PA-C [address], [place], [address] , [facility] 4 16:55:09 Iron deficiency anemia Active 2022 Problem Code: D50.9; Problem Code Type: ICD-10; Not Available [facility] 3 05:38:58 Adult health examination Active 2022 Problem Code: Z00.00; Problem Code Type: ICD-10; Not Available [facility] 3 05:38:59 Thyrotoxicosi s Completed 201804/24/2023 Problem Code: E05.90; Problem Code Type: ICD-10; Not Available [facility] 3 05:39:27 Blood glucose outside reference range Completed 201812/15/2018 Problem Code: R73.09; Problem Code Type: ICD-10; Not Available [facility] 05:39:32 Anemia Completed 202204/24/2023 Problem Code: D64.9; Problem Code Type: ICD-10; Not Available [facility] 05:39:36 Major depression, single episode Completed 201801/05/2019 Problem Code: F32.9; Problem Code Type: ICD-10; Not Available [facility] 3 05:39:37 Postconcussio n syndrome Active 2022 BIRDIE EVANGELISTA PA-C [address], [place], [address] , [facility] 3 15:15:22 Neck pain Active 202205/20/2023 - Comments only - Edith Worrell LIME TRIMMER - Neck pain and headache s/p fall on Saturday. Was sitting on a chair that collapsed and she hit her head and back on the chest freezer just behind her. Feels achy all over, has been taking acetaminphen without signficant relief Problem Code: M54.2; Problem Code Type: ICD-10; Not Available [facility] 4 05:37:26 Tremor Active 202205/20/2023 - Comments only - Edith Worrell LIME TRIMMER - Has been having shaking spells which started prior to her fall. Reports she drinks Iced coffee all day long from first waking to just before bed. Has episodes where she is shaking all over. Recommend try to decrease her caffeine, follow up with PCP in one week. Sooner if needed Problem Code: R25.1; Problem Code Type: ICD-10; Not Available [facility] 4 05:37:26 White matter disease Active 2022 Problem Code: R90.82; Problem Code Type: ICD-10; Not Available [facility] 4 05:37:26 Thrombocytope nieves disorder Active [address], [place], [address] [facility] 4 16:54:52 Problem Notes None recorded. Procedures Surgical History Date Name Laterality Status Provider Name and Address Organization Details Recorded Time 2 Date of Last Pap Smear completed [facility] 09/30/2023 11:06:22 Colonoscopy completed KATY Martinez, [facility] 09/30/2023 11:08:24 Imaging Results None recorded. Procedure Notes None recorded. Medical Equipment None Reported. Allergies Allergen ID Allergen Name Allergen Category Reaction Reaction Severity Criticality Documentation Date Start Date Code Code System Note Provider Name and Address Organization Details Recorded Time 32969 acetamino phen / oxycodone medicatio n hives moderate Not available 06/07/20232018 63743 3 RxNorm hives Aller gyCod e: '7224 71765 12'; Aller gyNam e: 'PERC OCET' ; Aller gyCon ceptT ype: 'NDC' ; Not Available [facility] 3 16:18:36 Medications Name Sig Start [...] FITS, WHEEZING OR SHORTNES S OF BREATH 10/23/ 2023 10/30 /2023 completed Not Available Not Available Not Available [...] 124 mm[Hg] 66 mm[Hg] PINEDA GREENWOOD MA [facility] 3 15:02:12 Date Recorded Body height Body mass index (BMI) Body weight Oxygen saturation Oxygen saturation in Arterial blood by Pulse oximetry Heart rate Systolic blood pressure Diastolic blood pressure Provider Name and Address Organization Details Last Updated DateTime 4 165.1 cm 42.1 kg/m2 341590. 37 g 97 % 97 % 79 /min 134 mm[Hg] 78 mm[Hg] Raymond Trammell RN [facility] 4 13:19:33 Date Recorded Body height Body mass index (BMI) Body weight Body temperature Respiratory rate Oxygen saturation Oxygen saturation in Arterial blood by Pulse oximetry Heart rate Systolic blood pressure Diastolic blood pressure Provider Name and Address Organization Details Last Updated DateTime 4 165.1 cm 41.2 kg/m2 024321. 42 g 96.3 [degF] 18 /min 96 % 96 % 80 /min 130 mm[Hg] 80 mm[Hg] JESUS MOCTEZUMA LPN [facility] 13:16:03 Social History Question Answer Notes LastModified by Organizat ion Details LastModified Time Tobacco Smoking Status Current Every Day Smoker ARY LIU, [facility] 06/21/2023 15:00:37 Would You Say That, In [...] Age Did You Start Smoking Tobacco? 17 [email or web address] Information not available 06/21/2023 How Much Tobacco [...] Encounter Closed Date Diagnosis/Indication Diagnosis SNOMED-CT Code [id number] BIRDIE EVANGELISTA PA-C [facility] [address] [place] [address] 06/21/2023 14:48:38 06/21/2023 15:25:40 Type 2 diabetes mellitus without complication 367163489 Postconcus genoveva syndrome 47998161 [id number] BIRDIE EVANGELISTA[address] [address] 08/13/2023 12:50:48 08/13/2023 14:09:37 Iron deficiency anemia 55589914 Type 2 jesus betes mellitus without complication 819011124 Hypothyroidism 90425904 White matter disease 160 969883189117 04 Postconcus genoveva syndrome 55848315 [id number] PINEDA GREENWOOD [address] [address] 10/02/2023 12:45:41 10/02/2023 13:12:53 Hypothyroidism 89754620 [id number] BIRDIE EVANGELISTA[address] [address] 02/13/2024 12:47:02 02/13/2024 14:20:52 Adult health examination 166598903 Obesity 968577916 Type 2 jesus betes mellitus without complication 683045196 Iron defic iency anemia 65007309 Hypothyroidism 29340490 Migraine with aura 11388 06 Hypertensive disorder 38 870561 Hyperlipidemia 90401116 [id number] JESUS MOCTEZUMA LPN [address] [address] 03/17/2024 08:48:20 03/17/2024 09:04:10 Thrombocytopenic disorder 602856788 Health Concerns Section Related Observation LastModified by Organization Detai ls LastModified Time None Recorded Concern Status LastModified by Organization Details LastModified Time None Recorded Advance Directives Directive None Recorded Payers Encounter Date Sequence Insurance Name Policy Number Policy Villa Covered Member ID Villa Member ID Guarantor Name 06/21/2023 1 [facility] [id number] Marsha Storm [id number] Marsha Storm 06/21/2023 2 [facility] (MEDICAID) Marsha Storm [id number] Marsha Storm 08/13/2023 1 [facility] [id number] Marsha Storm [id number] Marsha Storm 08/13/2023 2 [facility] (MEDICAID) Marsha Storm [id number] Marsha Storm 10/02/2023 1 [facility] [id number] Marsha Storm [id number] Marsha Storm 10/02/2023 2 [facility] (MEDICAID) Marsha Storm [id number] Marsha Storm 02/13/2024 2 [facility] (MEDICAID) Marsha Storm [id number] Marsha Storm 02/13/2024 1 [facility] (MEDICARE REPLACEMENT HMO) [id number] Marsha Storm [id number] Marsha Storm 03/17/2024 2 [facility] (MEDICAID) Marsha Storm [id number] Marsha Storm 03/17/2024 1 [facility] (MEDICARE REPLACEMENT HMO) [id number] Marsha Storm [id number] Marsha Storm Notes Date Note Type Note Provider Name and Address Organization Details Recorded Time 06/21/2023 text/html HPI Notes: Ifeanyi giron presents for follow-up ER visit. She went to [facility] ER on June 01 as she had [...] in her sleep patterns. [address], [place], [address], [facility]. 06/21/2023 15:36:51 08/13/2023 text/html HPI Notes: Ifeanyi [...] She does not have any other concerns. BIRDIE EVANGELISTA PA-C [address], [place], [address], [facility] 08/13/2023 15:25:29 02/13/2024 text/html HPI Notes: Ifeanyi giron presents for Annual Wellness Visit Annual exam: 63-year-old female patient presents for her annual exam. She has a history of obesity, type 2 diabetes mellitus, iron deficiency anemia, and hypothyroidism. She has recently lost 6 pounds by improving her diet and increasing physical activity. Diabetes follow-up: Patient has type 2 diabetes mellitus and taking her meds as prescribed. She her recent A1c result is 6.6. The patient has made lifestyle changes, including eating more fruits, salads, and vegetables. Hypertension follow-up: Patient has a history of hypertension and is currently taking hydrochlorothiazide . Her blood pressure today is 130/80, which is within the normal range. Migraine headaches: Patient experiences migraine headaches, which are exacerbated by heat and humidity. - Patient refuses all screening tests such as mammograms, bone density tests, colon cancer screening, Pap smears, and immunizations. - Patient has an upcoming eye doctor appointment scheduled in February. BIRDIE EVANGELISTA PA-C [address], [place], [address], [facility] 02/13/2024 17:54:31 OBGyn Episode No OBEpisode recorded.
[2024-03-17 20:08] LABS: Folate 11.8 ng/mL (8.6-20.0); Vitamin B12 147 pg/mL (193-986)
== END 2024-03-17 14:57 | disposition home or self-care (01) ==
LOC: NCHCN 14:56
PROVIDERS: PCP Nurse Practitioner Family; Visit Provider Physician Assistant
DX: D69.6 Thrombocytopenia, unspecified (principal)
CPT/HCPCS: 82607; 82746

== ENCOUNTER 2024-03-18 09:43 | Outpatient (REF) | payer MEDICARE, MEDICAID, SELFPAY ==
--- OUTSIDE RECORDS SUMMARY | 2024-03-18 09:46 | XMS_ITS | Referral Summary ---
Author Organization [facility] Address [address] [place] [address] Care Team Providers Care Gas Pumping Station Operator Name Role Phone Agus Kumar MD Primary Care Provider [phone] Encounters Date Type Department Care Team Description 02/14/2024 Lab Requisition [facility] Pathology & Laboratory [address] [address] Outr Resulting Lab, Provider 02/14/2024 Lab Requisition [facility] Pathology & Laboratory [facility] [address] [place] [address] Outr Resulting Lab, Provider from Last 3 [...] C Antibody Negative Negative 02/14/2024 21:59 EDT [facility] Blood VENOUS BLOOD / Unknown 02/13/2024 14:10 EDT 02/14/2024 19:51 EDT Provider Outr Resulting Lab CHEMISTRY & BLOOD GAS ORDERABLES Performing Organization Address [facility] Co de Phone Number [facility] [address] [place], [place] [phone] * HIV 1/2 ANTIGEN AND ANTIBODY, 4TH GENERATION (02/13/2024 14:10 EDT) HIV 1 and 2 Antibody/p24 Antigen, 4th Generation Negative Negative 02/14/2024 21:23 EDT [facility] Comment:If acute HIV-1 infec tion is suspected in a high risk patient, submit plasma specimen for HIV-1 RNA quantitation test. Blood VENOUS BLOOD / Unknown 02/13/2024 14:10 EDT 02/14/2024 19:51 EDT Narrative [facility] - 02/14/2024 21:23 EDT Fourth Generation assay performed on the Goldpocket Interactiveaur XPT. Provider Outr Resulting Lab IMMUNOLOGY A ND SEROLOGY ORDERABLES Performing Organization Address City/[facility] Co de Phone Number [facility] [address] [place], [place] [phone] from Last 3 Months Care Teams Gas Pumping Station Operator Relationship Specialty Start Date End Date Agus Kumar MD [address] [place] [address] PCP - General 06/18/15
--- OUTSIDE RECORDS SUMMARY | 2024-03-18 09:46 | XMS_ITS | Encounter Summary ---
Author Organization [facility] Address [address] [place] [address] Care Team Providers Care Prevocational/Rehabilitation Counselor Name Role Phone Agus Kumar MD Primary Care Provider [phone] Encounter Details Date Type Department Care Team (Late st Contact Info) Description 02/14/2024 Lab Requisition [facility] Pathology & Laboratory Medicine - [address] [address] Outr Resulting Lab, Provider Social History Tobacco [...] 4th Generation Negative Negative 02/14/2024 21:[address] [facility] Comment:If acute HIV-1 infec tion is suspected in a high risk patient, submit plasma specimen for HIV-1 RNA quantitation test. Blood VENOUS BLOOD / Unknown 02/13/2024 14:10 EDT 02/14/2024 19:51 EDT Narrative [facility] - 02/14/2024 21:23 EDT Fourth Generation assay performed on the Siemens Centaur XPT. Provider Outr Resulting Lab IMMUNOLOGY A ND SEROLOGY ORDERABLES [facility] [address] [place], [place] [address] documented in this encounter Visit Diagnoses Not on filedocumented in this encounter Care Teams Prevocational/Rehabilitation Counselor Relationship Specialty Start Date End Date Agus Kumar MD [address] [place] [address] PCP - General 06/18/15 documented as of this encounter
--- OUTSIDE RECORDS SUMMARY | 2024-03-18 09:46 | XMS_ITS | Encounter Summary ---
Author Organization [facility] Address [address] [place] [address] Care Team Providers Care Network Development Coordinator Name Role Phone Agus Kumar MD Primary Care Provider [phone] Encounter Details Date Type Department Care Team (Late st Contact Info) Description 02/14/2024 Lab Requisition [facility] Pathology & Laboratory Medicine - [address] [address] Outr Resulting Lab, Provider Social History Tobacco [...] C Antibody Negative Negative 02/14/2024 21:59 EDT [facility] Blood VENOUS BLOOD / Unknown 02/13/2024 14:10 EDT 02/14/2024 19:51 EDT Provider Outr Resulting Lab CHEMISTRY & BLOOD GAS ORDERABLES [facility] [address] [place] [address] documented in this encounter Visit Diagnoses Not on filedocumented in this encounter Care Teams Network Development Coordinator Relationship Specialty Start Date End Date Agus Kumar MD [address] [place] [address] PCP - General 06/18/15 documented as of this encounter
--- OUTSIDE RECORDS SUMMARY | 2024-03-18 09:46 | XMS_ITS | Clinical Summary ---
Author Organization [facility] Address [address] [place] [address] Care Team Providers Care Display Card Writer Name Role Phone Agus Kumar MD Primary Care Provider [phone] Encounters Date Type Department Care Team Description 02/14/2024 Lab Requisition [facility] Pathology & Laboratory [address] [address] Outr Resulting Lab, Provider 02/14/2024 Lab Requisition [facility] Pathology & Laboratory [facility] [address] [place] [address] Outr Resulting Lab, Provider from Last 3 [...] C Antibody Negative Negative 02/14/2024 21:59 EDT [facility] Blood VENOUS BLOOD / Unknown 02/13/2024 14:10 EDT 02/14/2024 19:51 EDT Provider Outr Resulting Lab CHEMISTRY & BLOOD GAS ORDERABLES Performing Organization Address [facility]/ZIP Co de Phone Number [facility] [address] [place], [place] [address] * HIV 1/2 ANTIGEN AND ANTIBODY, 4TH GENERATION (02/13/2024 14:10 EDT) HIV 1 and 2 Antibody/p24 Antigen, 4th Generation Negative Negative 02/14/2024 21:23 EDT [facility] Comment:If acute HIV-1 infec tion is suspected in a high risk patient, submit plasma specimen for HIV-1 RNA quantitation test. Blood VENOUS BLOOD / Unknown 02/13/2024 14:10 EDT 02/14/2024 19:51 EDT Narrative [facility] - 02/14/2024 21:23 EDT Fourth Generation assay performed on the Advitechaur XPT. Provider Outr Resulting Lab IMMUNOLOGY A ND SEROLOGY ORDERABLES Performing Organization Address City/[facility]/ZIP Co de Phone Number [facility] [address] [place], [place] [address] from Last 3 Months Care Teams Display Card Writer Relationship Specialty Start Date End Date Agus Kumar MD [address] [place] [address] PCP - General 06/18/15
--- OUTSIDE RECORDS SUMMARY | 2024-03-18 09:46 | XMS_ITS | Encounter Summary ---
Author Organization [facility] Address [address] [place] [address] Care Team Providers Care Nursery Attendant Name Role Phone Unavailable Primary Care Provider Unavailabl e Encounter Details Date Type Department Care Team (Late st Contact Info) Description 05/23/2005 Results Only [facility] [address] [place] [address] Abhay Howard MD Social History Tobacco Use [...] ? SANDRA ROJO ? Accession #: ? [id number] : ? 1960 (Age: 44) ??F ?Collect Date: ? 05/23/2005 Location: ? [facility] ? Receive Date: ? 05/25/2005 Provider: ?ABHAY HOWARD MD Copy to: ? Specimen/Source: ?ThinPrep Pap Test, Cervix, processed on [employer] ThinPrep Imaging System, with manual evaluation Last [...] End of Report [facility] 05/23/2005 05/25/2005 Abhya Howard MD PATHOLOGY ORDERABLES [facility] [address] [place] [address] documented in this encounter Visit Diagnoses Not on filedocumented in this encounter
[2024-03-18 20:32] LABS: Abs Immature Grans 0.07 10^3/uL (0.0-0.06); Absolute Basophil Count 0.08 10^3/uL (0.0-0.2); Absolute Eosinophil Count 0.18 10^3/uL (0.0-0.7); Absolute Lymphocyte Count 1.05 10^3/uL (1.2-3.4); Basophils % 2.1 %; Eosinophils % 4.8 %; HCT 38.9 % (36.0-46.0); Immature Grans % 1.9 %; Lymphocytes % 27.8 %; MCH 29.3 pg (27.0-33.0); MCHC 33.4 % (32.0-36.0); MCV 88 fL (80-95); MPV 12.2 fL (8.0-11.0); Monocytes % 10.6 %; Neutrophils % 52.8 %; Platelet Count 146 10^3/uL (130-400); RBC 4.44 10^6/uL (3.93-5.22); RDW 14.1 % (11.7-14.6); RDW-SD 45.8 fL; WBC 3.78 10^3/uL (4.4-10.8)
== END 2024-03-18 09:44 | disposition home or self-care (01) ==
LOC: NCHCN 09:43
PROVIDERS: PCP Nurse Practitioner Family; Visit Provider Physician Assistant
DX: D69.6 Thrombocytopenia, unspecified (principal)
CPT/HCPCS: 85025

== ENCOUNTER 2024-08-19 12:14 | Outpatient (REF) | payer MEDICARE, MEDICAID, SELFPAY ==
--- OUTSIDE RECORDS SUMMARY | 2024-08-19 12:18 | XMS_ITS | Referral Summary ---
Author Organization [facility] Address [address] [place] [address] Care Team Providers Care Test Technician Name Role Phone Agus Kumar MD Primary Care Provider [phone] Social History Tobacco Use Types Packs/Day Years Used Date Smoking Tobacco: Never Assessed Comments Unknown Sex and Gender Information Value Date Recorded Sex Assigned at Not on file Legal Sex Female 18:26 EST Gender Identity Not on file Sexual Orientation Not on file Plan of Treatment Not on file Procedures Procedure Name Priority Date/Time Associated Diagnosis Comments HEPATITIS C AB W REFLEX TO HCV RNA BY PCR Routine 02/13/2024 14:10 EDT from Last 3 Months or Most Recently Relevant to Health Maintenance Results * HEPATITIS C AB W REFLEX TO HCV RNA BY PCR (02/13/2024 14:10 EDT) Hep C Antibody Negative Negative 02/14/2024 21:59 EDT [facility] Blood VENOUS BLOOD / Unknown 02/13/2024 14:10 EDT 02/14/2024 19:51 EDT us Provider Outr Resulting Lab CHEMISTRY & BLOOD GA S ORDERABLES Final Result [facility] [address] [place] [address] from Last 3 Months or Most Recently Relevant to Health Maintenance Care Teams Test Technician Relationship Specialty Start Date End Date Agus Kumar MD [address] [place] [address] PCP - General 06/18/15
--- OUTSIDE RECORDS SUMMARY | 2024-08-19 12:18 | XMS_ITS | Encounter Summary ---
Author Organization [facility] Address [address] [place] [address] Care Team Providers Care Process Improvement Manager Name Role Phone Agus Kumar MD Primary Care Provider [phone] Encounter Details Date Type Department Care Team (Late st Contact Info) Description 02/14/2024 Lab Requisition [facility] Pathology & Laboratory Medicine - [address] [address] Outr Resulting Lab, Provider Social History Tobacco [...] 4th Generation Negative Negative 02/14/2024 21:[address] [facility] Comment:If acute HIV-1 infec tion is suspected in a high risk patient, submit plasma specimen for HIV-1 RNA quantitation test. Blood VENOUS BLOOD / Unknown 02/13/2024 14:10 EDT 02/14/2024 19:[address] [facility] - 02/14/2024 21:23 EDT Fourth Generation assay performed on the Siemens Croak.itaur XPT. us Provider Outr Resulting Lab IMMUNOLOGY AND SEROL OGY ORDERABLES Final Result [facility] [address] [place], [place] [address] documented in this encounter Visit Diagnoses Not on filedocumented in this encounter Care Teams Process Improvement Manager Relationship Specialty Start Date End Date Agsu Kumar MD [address] [place] [address] PCP - General 06/18/15 documented as of this encounter
--- OUTSIDE RECORDS SUMMARY | 2024-08-19 12:18 | XMS_ITS | Clinical Summary ---
[facility] [place] [address] Care Team Providers Care Career Based Intervention Coordinator Name Role Phone Birdie Sebastian Primary Care Provider Allergies Active Allergy Reactions Criticality Noted Date Comments Nicotine Medications Medication Sig Dispensed Refills Start Date End Date Status metoprolol tartrate (LOPRESSOR) 50 mg tablet 50MG, PO, Twice daily 10/30/2006 Active esomeprazole (NEXIUM) 40 mg capsule 40MG, PO, Once daily 11/16/2005 Active acetaminophen (TYLENOL) 325 mg tablet 11/16/2005 Active ibuprofen (ADVIL;MOTRIN) 200 mg tablet 11/16/2005 Active methimazole (TAPAZOLE) 10 mg tablet 30MG = 3 Tablet(s), PO, Once daily 10/30/2006 Active Social History Tobacco Use Types Packs/Day Years Used Date Smoking Tobacco: Never Assessed Sex and Gender Information Value Date Recorded Sex Assigned at Not on file Gender Identity Not on file Sexual Orientation Not on file Plan of Treatment Health Maintenance Due Date Last Done Comments CT Colonography 1961 Colonoscopy 1961 Colorectal Cancer Screening 1961 FIT DNA 1961 FIT 1961 Sigmoidoscopy (10 year) with FIT yearly 1961 Sigmoidoscopy 1961 HIV screen 1979 Hepatitis C Screening 1979 Tetanus/Diphtheria/Pertussis Vaccines (1 - Tdap) 06/29 HPV test 1991 PAP Smear 1991 Breast Cancer Share Decision Needed 2001 Breast Cancer screening 2001 Pneumoccocal Vaccine: 50+ (1 of 1 - PCV) 2011 Zoster vaccine (1 of 2) 2011 Advance Directive 2016 Covid-19 Vaccine (1 - season) 2024 Influenza (Flu) vaccine (1 o f 1 - Influenza standard series) 03/29/2024 Care Teams Career Based Intervention Coordinator Relationship Specialty Start Date End Date Birdie Sebastian PA [address] [place] [address] PCP - General Family Medicine 05/08/24
--- OUTSIDE RECORDS SUMMARY | 2024-08-19 12:18 | XMS_ITS | Clinical Summary ---
Author Organization [facility] Address [address] [place] [address] Care Team Providers Care Dental Front Office Assistant Name Role Phone Agus Kumar MD Primary Care Provider [phone] Social History Tobacco Use Types Packs/Day Years Used Date Smoking Tobacco: Never Assessed Comments Unknown Sex and Gender Information Value Date Recorded Sex Assigned at Not on file Legal Sex Female 18:26 EST Gender Identity Not on file Sexual Orientation Not on file Plan of Treatment Health Maintenance Due Date Last Done Comments COVID-19 Vaccine (2023- season) 2024 RSV Immunization ( o r 60+ Years) (1 - 1-dose 75+ series) 2036 Hepatitis C Screen Completed 02/13/2024 Procedures Procedure Name Priority Date/Time Associated Diagnosis Comments HEPATITIS C AB W REFLEX TO HCV RNA BY PCR Routine 02/13/2024 14:10 EDT from Last 3 Months or Most Recently Relevant to Health Maintenance Results * HEPATITIS C AB W REFLEX TO HCV RNA BY PCR (02/13/2024 14:10 EDT) Hep C Antibody Negative Negative 02/14/2024 21:59 EDT [facility] Blood VENOUS BLOOD / Unknown 02/13/2024 14:10 EDT 02/14/2024 19:51 EDT us Provider Outr Resulting Lab CHEMISTRY & BLOOD GA S ORDERABLES Final Result [facility] [address] [place] [address] from Last 3 Months or Most Recently Relevant to Health Maintenance Care Teams Dental Front Office Assistant Relationship Specialty Start Date End Date Agus Kumar MD [address] [place] [address] PCP - General 06/18/15
--- OUTSIDE RECORDS SUMMARY | 2024-08-19 12:18 | XMS_ITS | Encounter Summary ---
Author Organization [facility] Address [address] [place] [address] Care Team Providers Care District Resource Officer Name Role Phone Agus Kumar MD Primary Care Provider [phone] Encounter Details Date Type Department Care Team (Late st Contact Info) Description 02/14/2024 Lab Requisition [facility] Pathology & Laboratory Medicine - [address] [address] Outr Resulting Lab, Provider Social History Tobacco [...] C Antibody Negative Negative 02/14/2024 21:59 EDT [facility] Blood VENOUS BLOOD / Unknown 02/13/2024 14:10 EDT 02/14/2024 19:51 EDT us Provider Outr Resulting Lab CHEMISTRY & BLOOD GA S ORDERABLES Final Result [facility] [address] [place] [address] documented in this encounter Visit Diagnoses Not on filedocumented in this encounter Care Teams District Resource Officer Relationship Specialty Start Date End Date Agus Kumar MD [address] [place] [address] PCP - General 06/18/15 documented as of this encounter
--- OUTSIDE RECORDS SUMMARY | 2024-08-19 12:18 | XMS_ITS | Encounter Summary ---
Author Organization [facility] Address [address] [place] [address] Care Team Providers Care Sand Blaster Name Role Phone Unavailable Primary Care Provider Unavailabl e Encounter Details Date Type Department Care Team (Late st Contact Info) Description 05/23/2005 Results Only [facility] [address] [place] [address] Abhay Howard MD Social History Tobacco Use [...] ? SANDRA ROJO ? Accession #: ? [id number] : ? 1960 (Age: 44) ??F ?Collect Date: ? 05/23/2005 Location: ? [facility] ? Receive Date: ? 05/25/2005 Provider: ?ABHAY HOWARD MD Copy to: ? Specimen/Source: ?ThinPrep Pap Test, Cervix, processed on [employer] ThinPrep Imaging System, with manual evaluation Last [...] End of Report [facility] 05/23/2005 05/25/2005 us Abhay Howard MD PATHOLOGY ORDERABLES Final Res ult [facility] [address] [place] [address] documented in this encounter Visit Diagnoses Not on filedocumented in this encounter
--- OUTSIDE RECORDS SUMMARY | 2024-08-19 12:18 | XMS_ITS | Encounter Summary ---
[place] [address] Care Team Providers Care Die Cast Supervisor Name Role Phone Birdie Sebastian Primary Care Provider Reason for Referral * Consultation (Routine) - Closed Specialty Diagnoses / Procedures Referred By Vitor t Referred To Contact Gastroenterology Diagnoses Fatty (change of) liver, not elsewhere classified liver - fatty liver Birdie Sebastian PA [address] [place] [address] [facility] [address] [place] [phone] Referral ID Status Reason Start Date Expiration Date V isits Requested Visits Authorized [id number] Closed Consult, Test & Treat PCP Updated and/or Approved 04/21/2024 04/20/2025 6 6 Encounter Details Date Type Department Care Team (Latest Contact Info) Description 05/08/2024 Transcribe Orders eDH Incoming Referrals [phone] Birdie Sebastian PA [address] [address] Fatty (change of) liver, not elsewhere classified Social History Tobacco Use Types Packs/Day Years Used Date Smoking Tobacco: Never Assessed Sex and Gender Information Value Date Recorded Sex Assigned at Not on file Gender Identity Not on file Sexual Orientation Not on file documented as of this encounter Plan of Treatment Scheduled Referrals Name Type Priority Associated Diagnoses Order Schedule Referral to Gastroenterology Outpatient Referral Routine Fatty (Change Of) Liver, Not Elsewhere Classified Ordered: 05/08/2024 documented as of this encounter Visit Diagnoses Diagnosis Fatty (change of) liver, not elsewhere classified documented in this encounter Care Teams Die Cast Supervisor Relationship Specialty Start Date End Date Birdie Sebastian PA [address] [place] [address] PCP - General Family Medicine 05/08/24 documented as of this encounter
--- OUTSIDE RECORDS SUMMARY | 2024-08-19 12:18 | XMS_ITS | Continuity of Care Document ---
Author [facility] Address [address] [place] [address] Care Team Providers Care Neonatal Intensive Care Unit Nurse Name Role Phone BIRDIE EVANGELISTA Primary Care Provider [employer] Senior Account Manager Assessment No assessment recorded. Plan of Treatment Reminders Order Date Submit Date Provider Last Modified By Organization Details Last Modified Time Details Appointments Follow Up 2024 09:30A Andrea EVANGELISTA Not available Not available Not available Follow Up 2024 01:30P Andrea EVANGELISTA Not available Not available Not available Lab CBC w/ auto diff 2024 025 [facility] (Registration ), [address] [place] [address] [place], [address], 08/19/2024 10:20:32 CMP, serum or plasma 2024 025 [facility] (Registration ), [address] [place] [address] [place], [address], 08/19/2024 10:15:28 hemoglobi n A1C, fingersti ck [email or web address] [facility] [place], [address] [place] [address], [place], [address], 08/19/2024 09:30:37 TSH, serum, reflex free T4 2024 025 [facility] (Registration ), [address] [place] [address] [place], [address], 08/19/2024 10:15:27 iron + TIBC + ferritin, serum 2024 025 [facility] ([facility] ), [address] [place] [address] [place], [address], 08/19/2024 10:15:27 Referral None recorded. Procedures None recorded. Surgeries None recorded. Imaging None recorded. Medication Orders None recorded. Patient TargetsNo targets recorded. Patient Instructions Encounter Date Encounter Id Patient Instructions Last Modified By Organization Details Last Modified Time 08/19/2024 [id number] diet [email or web address] Not available 08/19 09:55:45 exercise [email or web address] Not available 2024 09:55:44 Decrease carbohydrate intake (breads, pasta, rice, potatoes, corn, peas, carrots, milk, sweets and sugary drinks) as well as increase aerobic exercise (ie walking 4-5 times per week for 20-30 minutes) You had blood work done today. Please allow up to 2 weeks to hear about results. Call with any questions or concerns [email or web address] Not available 08/19/2024 09:34:08 Reason for Referral None Reported. Results Created Date Observation Date Name Description Value Unit Range Abnormal Flag Note LastModifiedBy Organization Detail LastModifiedTime 08/19/19 25 08/19/2024 hemog lobin A1C, finge rstic k hemoglobin A1C 7.3 % <5.[address] [facility] [address], [place], [address], 08/13/2024 16:00:50 Result Notes None recorded. Problems Name Problem SNOMED Code Status Onset Date Resolution Date Notes Provider Name and Address Organization Details Recorded Time Severe obesity 78287141312 104 Active 201808/15/19 23 - Comments only - Birdie BENNETT - Congratu balbina patient on weight loss keep up the good work Problem Code: E66.01; Problem Code Type: ICD-10; Not Available [facility] 3 05:38:56 [facility] hyperten genoveva 61215047 Active 201802/15/20 23 - Comments only - Birdie BENNETT - Blood pressure well controll ed continue current medicati ons. Checking CMP. Problem Code: I10; Problem Code Type: ICD-10; Not Available [facility] 3 05:38:56 Low back pain 061893290 Active 2018 Problem Code: M54.5; Problem Code Type: ICD-10; Not Available [facility] 3 05:38:57 Hypothyr oidism 29086233 Active 201802/15/20 23 - Comments only - Birdie BENNETT - Continue current dose of levothyr oxine. Thyroid last checked in September 2022. Problem Code: E03.9; Problem Code Type: ICD-10; Not Available [facility] 3 05:38:57 Headache 10943177 Active 2018 Problem Code: R51; Problem Code Type: ICD-10; Not Available [facility] 3 05:38:57 Gastroes ophageal reflux disease without esophagi tis 127400399 Active 2018 Problem Code: K21.9; Problem Code Type: ICD-10; Not Available [facility] 3 05:38:57 Nicotine dependen ce 48533359 Active 201802/15/20 23 - Comments only - Birdie BENNETT - Patient states that she is a light smoker and is not ready to quit at this time Problem Code: F17.200; Problem Code Type: ICD-10; Not Available [facility] 3 05:38:57 Vitamin D deficien cy 65385076 Active 2018 Problem Code: E55.9; Problem Code Type: ICD-10; Not Available [facility] 3 05:38:57 Type 2 diabetes mellitus without complica tion 950688087 Active 201802/16/20 22 - Comments only - Birdie BENNETT - A1c decrease d to 6.8. Continue current medicati ons. Keep eye exam as schedule d. Patient refuses foot exam. Discussi on about proper foot care. 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 Update lipid panel. Problem Code: E78.5; Problem Code Type: ICD-10; Not Available [facility] 3 05:38:58 Counseli ng Active 201801/09/20 19 - Comments only - Delmi Monroy P[employer] FEEDER - Reviewed records, meds, squared away her DM meds (should only be on Janumet) . Refills sent to [facility]. Problem Code: Z71.89; Problem Code Type: ICD-10; Not Available [facility] 3 05:38:58 Allergic rhinitis 83382214 Active 202008/15/19 23 - Comments only - Birdie BENNETT - I suspect that her symptoms are more related to allergie s and in the past it seems as though she had relief from the Pataday eyedrops . Prescrip tion sent into pharmacy . Continue with Flonase. Problem Code: J30.9; Problem Code Type: ICD-10; Not Available [facility] 3 05:38:58 High enzyme level in serum 331078978 Completed 202104/21/2024 FIB4 4.06 02/14/24 BIRDIE EVANGELISTA PA-C [facility] [address], [place], [address] , [facility]. 4 16:52:52 Iron deficien cy anemia 89521231 Active 2022 Problem Code: D50.9; Problem Code Type: ICD-10; Not Available [facility] 3 05:38:58 Adult health examinat ion Active 2022 Problem Code: Z00.00; Problem Code Type: ICD-10; Not Available [facility] 3 05:38:59 Thyrotox icosis 98455399 Completed 201804/24/2023 Problem Code: E05.90; Problem Code Type: ICD-10; Not Available [facility] 3 05:39:27 Blood glucose outside referenc e range 246178820 Completed 201812/15/2018 Problem Code: R73.09; Problem Code Type: ICD-10; Not Available [facility] 3 05:39:32 Anemia 191279669 Completed 202204/24/2023 Problem Code: D64.9; Problem Code Type: ICD-10; Not Available [facility] 05:39:36 Major depressi on, single episode 83763180 Completed 201801/05/2019 Problem Code: F32.9; Problem Code Type: ICD-10; Not Available [facility] 05:39:37 Postconc ussion syndrome 11125076 Active [address], [place], [address] , [facility] 15:15:22 Neck pain 80848815 Active 202205/20/20 23 - Comments only - Edith Worrell [employer] - Neck pain and headache s/p fall on Saturday . Was sitting on a chair that collapse d and she hit her head and back on the chest freezer just behind her. Feels achy all over, has been taking acetamin phen without signfica nt relief Problem Code: M54.2; Problem Code Type: ICD-10; Not Available [facility] 4 05:37:26 Tremor 97107150 Active 202205/20/20 23 - Comments only - Edith Worrell P[employer] FEEDER - Has been having shaking spells which started prior to her fall. Reports she drinks Iced coffee all day long from first waking to just before bed. Has episodes where she is shaking all over. Recommen d try to decrease her caffeine , follow up with PCP in one week. Sooner if needed Problem Code: R25.1; Problem Code Type: ICD-10; Not Available [facility] 4 05:37:26 White matter disease 28719506862 737201 Active 2022 Problem Code: R90.82; Problem Code Type: ICD-10; Not Available [facility] 4 05:37:26 Thromboc ytopenic disorder 486467436 Active 2023 BIRDIE EVANGELISTA PA-C [address], [facility] [address] , [facility] 4 16:54:52 Cobalami n deficien cy 697327768 Active 2023 XIN BECKMAN MD [address], [facility] [address] , [facility] 4 06:38:03 Steatosi s of liver 730133977 Active 02/2024 FIB 4 = 2.75 BIRDIE EVANGELISTA PA-C [address], [facility] [address] , [facility] 4 16:58:54 Problem Notes None recorded. Procedures Surgical History Date Name Laterality Status Provider Name and Address Organization Details Recorded Time 2 Date of Last Pap Smear completed Layne Sarmiento RN [facility] 09/30/2023 11:06:22 Colonoscopy completed Layne Sarmiento RN [facility] 09/30/2023 11:08:24 Imaging Results None recorded. Procedure Notes None recorded. Medical Equipment None Reported. Allergies Allergen ID Allergen Name Allergen Category Reaction Reaction Severity Criticality Documentation Date Start Date Code Code System Note Provider Name and Address Organization Details Recorded Time 15213 acetamino phen / oxycodone medicatio n hives moderate Not available 06/07/20232018 40570 3 RxNorm hives Aller gyCod e: '7224 08482 12'; Aller gyNam e: 'PERC OCET' ; Aller gyCon ceptT ype: 'NDC' ; Not Available [facility] 3 16:18:36 Medications Name Sig Start Date [...] completed Not Available Not Available Not Available Vitamin B-12 1,000 mcg tablet Take 1 tablet every day by oral route. active Not Available Not Available No t Available cyclobenz aprine 5 mg tablet TAKE [...] t Available Vitals Date Recorded Body height Body mass index (BMI) Body weight Oxygen saturation Oxygen saturation in Arterial blood by Pulse oximetry Heart rate Systolic blood pressure Diastolic blood pressure Provider Name and Address Organization Details Last Updated DateTime 165.1 cm 41.3 kg/m2 529907. 01 g 96 % 96 % 66 /min 140 mm[Hg] 75 mm[Hg] HUSSEIN ABARCA RN [facility] 09:17:20 Date Recorded Systolic blood pressure Diastolic blood pressure Provider Name and Address Organization Details Last Updated DateTime 08/19/2024 134 mm[Hg] 74 mm[Hg] [address], [place], [address], [facility] 08/19/2024 09:51:14 Social History Question Answer Notes LastModified by Organizat ion Details LastModified Time Tobacco Smoking Status Current Every Day Smoker ARY LIU, [facility] 06/21/2023 15:00:37 Would You Say That, [...] Date Of Your Most Recent Tobacco Screening? 08/19/2024 Information not available 08/19/2024 What Is Your Current Pack Years? 20-29packyear s Information not available 08/19/2024 At What Age Did You Start Smoking Tobacco? 17 [email or web address] Information not available 06/21/2023 How Much Tobacco Do You Smoke? 0.5 PPD Information not available 02/13/2024 Has Tobacco Cessation Counseling Been Provided? Yes Information not available 02/13/2024 On What Date Was Tobacco Cessation Counseling Provided? 08/19/2024 Information not available 08/19/2024 How Many Years Have You Smoked Tobacco? 48 Information not available 08/19/2024 Do You Or Have You Ever Used [...] Encounter Closed Date Diagnosis/Indication Diagnosis SNOMED-CT Code Diagnosis ICD10 Code Diagnosis Note [id number] BIRDIE EVANGELISTA PA-C [address] [address] 08/19/2024 08:45:39 08/19/2024 10:05:51 Hyperlipidemia 49967407 E78.5 checking fasting blood work today Type 2 jesus betes mellitus without complication 709671924 E11.9 Patient's A1c has increased to 7.3, which the patient attributes to consuming Nirav Sedalia, a high-sugar beverage. This indicates suboptimal glycemic control. The patient is currently on Janumet twice daily for diabetes management . The patient demonstrat es awareness of the need to improve their diet to lower their A1c. - Continue janumet - Advised to avoid or significan tly reduce consumptio n of Nirav Sedalia and other high-sugar beverages - Recommende d diluting orange juice if consumed - Encouraged to focus on whole foods and practice moderation in diet - Blood work ordered to monitor diabetes management - pt declines foot exam Essential hypertension 39244859 I10 controlled . continue current medication s. Steatosis of liver 1007 K76.0 checking routine BW Iron defic iency anemia 83950777 D50.9 Continue taking iron supplement s once a day as prescribed . Recheck iron levels. - Possible adjustment to every other day dosing pending lab results Hypothyroidism 65362576 E03.9 checking TSH. cont levothyrox ine 125mcg daily Obesity 262872258 E66.9 Patient has gained 1.5 pounds since the last visit, which the clinician attributes to recent holidays and increased A1c. This suggests a need for continued weight management efforts.- Counseled on the [facility] ip between diet, weight, and blood glucose control- Encouraged focus on whole foods and moderation in eating habits Health Concerns Section Related Observation LastModified by Organization Detai ls LastModified Time None Recorded Concern Status LastModified by Organization Details LastModified Time None Recorded Payers Encounter Date Sequence Insurance Name Policy Number Policy Villa Covered Member ID Villa Member ID Guarantor Name 08/19/2024 1 [facility] (MEDICAID) Marsha Rojo [id number] Marsha Rojo Notes Date Note Type Note Provider Name and Address Organization Details Recorded Time 08/19/2024 text/html Patient consente d to the use of [employer] to record and transcribe notes during this visit. Patient presents for follow-up on diabetes, hypertension, and obesity. The patient reports her A1c has increased to 7.3, which she attributes to consuming Nirav Sedalia. She acknowledges the need to reduce her intake of sugary drinks to lower her A1c. The patient denies any numbness or tingling in her feet. She reports her blood pressure at home has been good, fine and denies any stress. The patient continues to take her prescribed medications without complications. The patient is still taking ferrous sulfate daily with vitamin C for iron deficiency. BIRDIE EVANGELISTA PA-C [address], [place], [address], [facility]. 08/19/2024 09:56:05 OBGyn Episode No OBEpisode recorded.
[2024-08-19 20:12] LABS: Abs Immature Grans 0.01 10^3/uL (0.0-0.06); Absolute Basophil Count 0.04 10^3/uL (0.0-0.2); Absolute Eosinophil Count 0.17 10^3/uL (0.0-0.7); Absolute Neutrophil Count 1.35 10^3/uL (1.2-6.7); Basophils % 1.4 %; Eosinophils % 6.1 %; HCT 35.7 % (36.0-46.0); Immature Grans % 0.4 %; Lymphocytes % 32.5 %; MCH 28.2 pg (27.0-33.0); MCHC 33.6 % (32.0-36.0); MCV 84 fL (80-95); MPV 11.8 fL (8.0-11.0); Monocytes % 10.8 %; Neutrophils % 48.8 %; RBC 4.26 10^6/uL (3.93-5.22); RDW 14.7 % (11.7-14.6); RDW-SD 44.7 fL; WBC 2.77 10^3/uL (4.4-10.8)
[2024-08-19 20:38] LABS: Platelet Count 90 10^3/uL (130-400)
[2024-08-19 20:40] LABS: ALT 34 U/L (14-59); AST 40 U/L (15-37); Albumin 3.5 g/dL (3.4-5.0); Alkaline Phosphatase 102 U/L (46-116); BUN 10 mg/dL (7-18); Bilirubin, Total 0.71 mg/dL (0.2-1.0); CREATININE 0.9 mg/dL (0.55-1.02); Calcium 9.5 mg/dL (8.5-10.1); Chloride 106 mmol/L (98-107); Estimated GFR 71.83 (mL/min/1.73m2); Ferritin 37 ng/mL (8-252); Glucose 170 mg/dL (74-106); Potassium 3.7 mmol/L (3.5-5.1); Sodium 143 mmol/L (136-145); TSH (W/Ref FT4) 2.63 uIU/mL (0.36-3.74); Total Protein 7.3 g/dL (6.4-8.2)
[2024-08-19 20:41] LABS: Iron 52 ug/dL (50-170); Total Iron Binding Capacity 396 ug/dL (250-450)
[2024-08-20] LABS: Calculated LDL 95 mg/dL (<100); Cholesterol 174 mg/dL (<200); HDL Cholesterol 65 mg/dL (40-60); Triglyceride 70 mg/dL (<150)
== END 2024-08-19 12:15 | disposition home or self-care (01) ==
LOC: NCHCN 12:14
PROVIDERS: PCP Nurse Practitioner Family; Visit Provider Physician Assistant
DX: E03.9 Hypothyroidism, unspecified (principal); K76.0 Fatty (change of) liver, not elsewhere classified; D50.9 Iron deficiency anemia, unspecified; E78.5 Hyperlipidemia, unspecified
CPT/HCPCS: 80053; 80061; 82728; 83540; 83550; 84443; 85025

== ENCOUNTER 2024-08-24 15:19 | Outpatient (REF) | payer BC, MEDICAID, SELFPAY ==
--- OUTSIDE RECORDS SUMMARY | 2024-08-24 15:22 | XMS_ITS | Encounter Summary ---
[place] [address] Care Team Providers Care Solar Fabrication Technician Name Role Phone Birdie Sebastian Primary Care Provider Reason for Referral * Consultation (Routine) - Authorized Specialty Diagnoses / Procedures Referred By Vitor t Referred To Contact Hematology and Oncology Diagnoses Leukopenia, unspecified type Birdie Sebastian PA [address] [place] [address] [facility] [address] [place] [address] Referral ID Status Reason Start Date Expiration Date Visits Requested Visits Authorized [id number] Authorized Consult, Test & Treat 08/24/2024 08/24/2025 1 1 Encounter Details Date Type Department Care Team (Latest Contact Info) Description 08/24/2024 Transcribe Orders eDH Incoming Referrals [phone] Birdie Sebastian PA [address] [place] [address] Leukopenia, unspecified type Social History Tobacco Use Types Packs/Day Years Used Date Smoking Tobacco: Never Assessed Sex and Gender Information Value Date Recorded Sex Assigned at Not on file Gender Identity Not on file Sexual Orientation Not on file documented as of this encounter Plan of Treatment Scheduled Referrals Name Type Priority Associated Diagnoses Orde r Schedule Referral to Hematology and Oncology Outpatient Referral Routine Leukopenia, Unspecified Type Ordered: 08/24/2024 documented as of this encounter Visit Diagnoses Diagnosis Leukopenia, unspecified type documented in this encounter Care Teams Solar Fabrication Technician Relationship Specialty Start Date End Date Birdie Sebastian PA [address] [place] [address] PCP - General Family Medicine 05/08/24 documented as of this encounter
--- OUTSIDE RECORDS SUMMARY | 2024-08-24 15:22 | XMS_ITS | Referral Summary ---
Author Organization [facility] Address [address] [place] [address] Care Team Providers Care Councilperson Name Role Phone Agus Kumar MD Primary Care Provider [phone] Social History Tobacco Use Types Packs/Day Years [...] C Antibody Negative Negative 02/14/2024 21:59 EDT [facility] Blood VENOUS BLOOD / Unknown 02/13/2024 14:10 EDT 02/14/2024 19:51 EDT us Provider Outr Resulting Lab CHEMISTRY & BLOOD GA S ORDERABLES Final Result [facility] [address] [place] [address] from Last 3 Months or Most Recently Relevant to Health Maintenance Care Teams Councilperson Relationship Specialty Start Date End Date Agus Kumar MD [address] [place] [address] PCP - General 06/18/15
--- OUTSIDE RECORDS SUMMARY | 2024-08-24 15:22 | XMS_ITS | Encounter Summary ---
[place] [address] Care Team Providers Care Sleeve Setter Lockstitch Name Role Phone Birdie Sebastian Primary Care Provider Reason for Referral * Consultation (Routine) - Closed Specialty Diagnoses / Procedures Referred By Vitor t Referred To Contact Gastroenterology Diagnoses Fatty (change of) liver, not elsewhere classified liver - fatty liver Birdie Sebastian PA [address] [place] [id number] [facility] [address] [place] [phone] Referral ID Status Reason Start Date Expiration Date V isits Requested Visits Authorized [id number] Closed Consult, Test & Treat PCP Updated and/or Approved 04/21/2024 04/20/2025 6 6 Encounter Details Date Type Department Care Team (Latest Contact Info) Description 05/08/2024 Transcribe Orders [facility] Incoming Referrals [phone] Birdie Sebastian PA [address] [address] Fatty (change of) liver, not elsewhere classified [...] classified documented in this encounter Care Teams Sleeve Setter Lockstitch Relationship Specialty Start Date End Date Birdie Sebastian PA [address] [place] [address] PCP - General Family Medicine 05/08/24 documented as of this encounter
--- OUTSIDE RECORDS SUMMARY | 2024-08-24 15:22 | XMS_ITS | Continuity of Care Document ---
Author Organization [facility] Address [address] [place] [address] Care Team Providers Care Hot Mill Worker Name Role Phone BIRDIE EVANGELISTA Primary Care Provider [phone] [employer] Clinical Immunologist Assessment No assessment recorded. Plan of Treatment Reminders Order Date Submit Date Provider Last Modified By Organization Details Last Modified Time Details Appointments Nurse Visit 2024 01:00P [facility] [place] [facility] Not available Not available Not available Follow Up 2024 01:30P Andrea EVANGELISTA Not available Not available Not available Lab CBC w/ auto diff 2024 025 [facility] (Registration ), [address] [place] [address] [place], [address], 08/19/2024 20:40:19 CMP, serum or plasma 2024 025 [facility] (Registration ), [address] [place] [address] [place], [address], 08/19/2024 20:42:22 hemoglobi n A1C, fingersti ck 2024 025 [email or web address] [facility] [place], [address] [place] [address], [address], 08/19/2024 09:30:37 TSH, serum, reflex free T4 2024 025 [facility] (Registration ), [address] [place] [address] [place], [address], 08/20/2024 09:31:29 iron + TIBC + ferritin, serum 2024 025 [email or web address] [facility] (Registration ), [address] [place] [address] , [place], [address], 08/20/2024 09:32:27 Referral None recorded. Procedures None recorded. Surgeries None recorded. Imaging None recorded. Medication Orders None recorded. Patient TargetsNo targets recorded. Patient Instructions Encounter Date Encounter Id Patient Instructions Last Modified By Organization Details Last Modified Time 08/19/2024 [id number] diet [email or web address] Not available 08/19 09:55:45 exercise [...] Abnormal Flag Note LastModifiedBy Organization Detail LastModifiedTime 08/19/1908/19/2024 hemog lobin A1C, finge rstic k hemoglobin A1C 7.3 % <5.7 Not Available [facility] [address], [place], [address], 08/13/2024 16:00:50 Result Notes None recorded. Problems Name Problem SNOMED Code Status Onset Date Resolution Date Notes Provider Name and Address Organization Details Recorded Time Leukopen ia 04083597 Active [address], [place], [address] , [place] - [facility]. 14:13:32 Severe obesity 48978554784 104 Active 201808/15/19 23 - Comments only - Birdie BENNETT - Congratu lated patient on weight loss keep up the good work Problem Code: E66.01; Problem Code Type: ICD-10; Not Available [facility] 3 05:38:56 [facility] hyperten genoveva 68383145 Active 201802/15/20 23 - Comments only - Birdie BENNETT - Blood pressure well controll ed continue current medicati ons. Checking CMP. Problem Code: I10; Problem Code Type: ICD-10; Not Available [facility] 3 05:38:56 Low back pain 926823062 Active 2018 Problem Code: M54.5; Problem Code Type: ICD-10; Not Available [facility] 3 05:38:57 Hypothyr oidism 62603911 Active 201802/15/20 23 - Comments only - Birdie BENNETT - Continue current dose of levothyr oxine. Thyroid last checked in September 2022. Problem Code: E03.9; Problem Code Type: ICD-10; Not Available [facility] 3 05:38:57 Headache 45923091 Active 2018 Problem Code: R51; Problem Code Type: ICD-10; Not Available [facility] 3 05:38:57 Gastroes ophageal reflux disease without esophagi tis 077889707 Active 2018 Problem Code: K21.9; Problem Code Type: ICD-10; Not Available [facility] 3 05:38:57 Nicotine dependen ce 09307815 Active 201802/15/20 23 - Comments only - Birdie BENNETT - Patient states that she is a light smoker and is not ready to quit at this time Problem Code: F17.200; Problem Code Type: ICD-10; Not Available [facility] 3 05:38:57 Vitamin D deficien cy 47759961 Active 2018 Problem Code: E55.9; Problem Code Type: ICD-10; Not Available [facility] 3 05:38:57 Type 2 diabetes mellitus without complica tion 161146437 Active 201802/16/20 22 - Comments only - Birdie BENNETT - A1c decrease d to 6.8. Continue current medicati ons. Keep eye exam as schedule d. Patient refuses foot exam. Discussi on about proper foot care. Problem Code: E11.9; Problem Code Type: ICD-10; Not Available [facility] 3 05:38:58 Hyperlip idemia 75506691 Active 201801/18/20 21 - Comments only - Delmi Monroy BEE RANCHER - Tolerati ng Crestor. Update lipid panel. Problem Code: E78.5; Problem Code Type: ICD-10; Not Available [facility] 3 05:38:58 Counseli ng Active 201801/09/20 19 - Comments only - Delmi Monroy BEE RANCHER - Reviewed records, meds, squared away her DM meds (should only be on Janumet) . Refills sent to [facility]. Problem Code: Z71.89; Problem Code Type: ICD-10; Not Available [facility] 3 05:38:58 Allergic rhinitis 53669513 Active 202008/15/19 23 - Comments only - Birdie BENNETT - I suspect that her symptoms are more related to allergie s and in the past it seems as though she had relief from the Pataday eyedrops . Prescrip tion sent into pharmacy . Continue with Flonase. Problem Code: J30.9; Problem Code Type: ICD-10; Not Available [facility] 3 05:38:58 High enzyme level in serum 782384111 Completed 202104/21/2024 FIB4 4.06 02/14/[address], [place], [address] , [facility]. 16:52:52 Iron deficien cy anemia 63018384 Active 2022 Problem Code: D50.9; Problem Code Type: ICD-10; Not Available [facility] 3 05:38:58 Adult health examinat ion Active 2022 Problem Code: Z00.00; Problem Code Type: ICD-10; Not Available [facility] 3 05:38:59 Thyrotox icosis 33923232 Completed 201804/24/2023 Problem Code: E05.90; Problem Code Type: ICD-10; Not Available [facility] 3 05:39:27 Blood glucose outside referenc e range 656613737 Completed 201812/15/2018 Problem Code: R73.09; Problem Code Type: ICD-10; Not Available [facility] 3 05:39:32 Anemia 419641082 Completed 202204/24/2023 Problem Code: D64.9; Problem Code Type: ICD-10; Not Available [facility] 3 05:39:36 Major depressi on, single episode 14890681 Completed 201801/05/2019 Problem Code: F32.9; Problem Code Type: ICD-10; Not Available [facility] 3 05:39:37 Postconc ussion syndrome 71635561 Active 2022 BIRDIE EVANGELISTA PA-C [address], [place], [address] , [facility] 3 15:15:22 Neck pain 68856039 Active 202205/20/20 23 - Comments only - Edith Worrell BEE RANCHER - Neck pain and headache s/p fall on Saturday . Was sitting on a chair that collapse d and she hit her head and back on the chest freezer just behind her. Feels achy all over, has been taking acetamin phen without signfica nt relief Problem Code: M54.2; Problem Code Type: ICD-10; Not Available [facility] 4 05:37:26 Tremor 63298085 Active 202205/20/20 23 - Comments only - Edithclint Nealelvin BEE RANCHER - Has been having shaking spells which started prior to her fall. Reports she drinks Iced coffee all day long from first waking to just before bed. Has episodes where she is shaking all over. Recommen d try to decrease her caffeine , follow up with PCP in one week. Sooner if needed Problem Code: R25.1; Problem Code Type: ICD-10; Not Available [facility] 4 05:37:26 White matter disease 57888536550 386872 Active 2022 Problem Code: R90.82; Problem Code Type: ICD-10; Not Available [facility] 4 05:37:26 Thromboc ytopenic disorder 132985829 Active 2023 BIRDIE EVANGELISTA PA-C [address], [address] 4 16:54:52 Cobalami n deficien cy 499606688 Active [address], [address] 4 06:38:03 Steatosi s of liver 463113485 Active 02/2024 FIB 4 = [address], [place] [address] , [facility] 4 16:58:54 Problem Notes None recorded. Procedures Surgical History Date Name Laterality Status Provider Name and Address Organization Details Recorded Time 2 Date of Last Pap Smear completed Layne Sarmiento RN [facility] 09/30/2023 11:06:22 Colonoscopy completed Layne Sarmiento RN [facility] 09/30/2023 11:08:24 Imaging Results None recorded. Procedure Notes None recorded. Medical Equipment None Reported. Allergies Allergen ID Allergen Name Allergen Category Reaction Reaction Severity Criticality Documentation Date Start Date Code Code System Note Provider Name and Address Organization Details Recorded Time 78975 acetamino phen / oxycodone medicatio n hives moderate Not available 06/07/20232018 98765 3 RxNorm hives Aller gyCod e: '7224 01432 12'; Aller gyNam e: 'PERC OCET' ; Aller gyCon ceptT ype: 'NDC' ; Not Available [facility] 3 16:18:36 Medications Name Sig Start Date [...] Last Updated DateTime 165.1 cm 41.3 kg/m2 910982. 01 g 96 % 96 % 66 /min 140 mm[Hg] 75 mm[Hg] HUSSEIN ABARCA RN [facility] 09:17:20 Date Recorded Systolic blood pressure Diastolic blood pressure Provider Name and Address Organization Details Last Updated DateTime 08/19/2024 134 mm[Hg] 74 mm[Hg] [address], [place], [address], [facility] 08/19/2024 09:51:14 Social History Question Answer Notes LastModified by Organizat ion Details LastModified Time Tobacco Smoking Status Current Every Day Smoker ARY LIU, [place] - [facility]. 06/21/2023 15:00:37 Would You Say That, In [...] Age Did You Start Smoking Tobacco? 17 [email or web address] Information not available 06/21/2023 How Much Tobacco [...] SNOMED-CT Code Diagnosis ICD10 Code Diagnosis Note [id number] BIRDIE EVANGELISTA PA-C [facility] [address] [place] [address] 08/19/2024 08:45:39 08/19/2024 10:05:51 Hyperlipidemia 90295796 E78.5 checking fasting blood work today Type 2 jesus betes mellitus without complication 092145049 E11.9 Patient's A1c has increased to 7.3, which the patient attributes to consuming Nirav Tidewater, a high-sugar beverage. This indicates suboptimal glycemic control. The patient is currently on Janumet twice daily for diabetes management . The patient demonstrat es awareness of the need to improve their diet to lower their A1c. - Continue janumet - Advised to avoid or significan tly reduce consumptio n of Nirav Tidewater and other high-sugar beverages - Recommende d diluting orange juice if consumed - Encouraged to focus on whole foods and practice moderation in diet - Blood work ordered to monitor diabetes management - pt declines foot exam Essential hypertension 78828795 I10 controlled . continue current medication s. Steatosis of liver 1007 K76.0 checking routine BW Iron defic iency anemia 50216376 D50.9 Continue taking iron supplement s once a day as prescribed . Recheck iron levels. - Possible adjustment to every other day dosing pending lab results Hypothyroidism 78265997 E03.9 checking TSH. cont levothyrox ine 125mcg daily Obesity 941688486 E66.9 Patient has gained 1.5 pounds since the last visit, which the clinician attributes to recent holidays and increased A1c. This suggests a need for continued weight management efforts.- Counseled on the [facility] ip between diet, weight, and blood glucose control- Encouraged focus on whole foods and moderation in eating habits Health Concerns Section Related Observation LastModified by Organization Detai ls LastModified Time None Recorded Concern Status LastModified by Organization Details LastModified Time None Recorded Payers Encounter Date Sequence Insurance Name Policy Number Policy Villa Covered Member ID Villa Member ID Guarantor Name 08/19/2024 2 [facility] (MEDICAID) Marshajah Rojo [id number] Marsha Rojo Notes Date Note Type Note Provider Name and Address Organization Details Recorded Time 08/19/2024 text/html Patient consente d to the use of [employer] to record and transcribe notes during this visit. Patient presents for follow-up on diabetes, hypertension, and obesity. The patient reports her A1c has increased to 7.3, which she attributes to consuming Nirav Tidewater. She acknowledges the need to reduce her [...] deficiency. BIRDIE EVANGELISTA PA-C [address], [place], [address], [facility]. 08/19/2024 09:56:05 OBGyn Episode No OBEpisode recorded.
--- OUTSIDE RECORDS SUMMARY | 2024-08-24 15:22 | XMS_ITS | Clinical Summary ---
Author Organization [facility] Address [facility] [place] [address] Care Team Providers Care Radio Aerial Installer Name Role Phone Birdie Sebastian Primary Care [...] 3 Tablet(s), PO, Once daily 10/30/2006 Active Encounters Date Type Department Care Team Description 08/24/2024 Transcribe Orders [facility] Incoming Referrals [phone] Birdie Sebastian, SABRINA Leukopenia, unspecified type from Last 3 Months Social History Tobacco [...] 2) 2011 Advance Directive 2016 Covid-19 Vaccine ( - 2023- season) 2024 Influenza (Flu) vaccine (1 o f 1 - Influenza standard series) 03/29/2024 Care Teams Radio Aerial Installer Relationship Specialty Start Date End Date Birdie Sebastian PA [address] [place] [address] PCP - General Family Medicine 05/08/24
--- OUTSIDE RECORDS SUMMARY | 2024-08-24 15:22 | XMS_ITS | Encounter Summary ---
Author Organization [facility] Address [address] [place] [address] Care Team Providers Care Set Up Person Name Role Phone Agus Kumar MD Primary Care Provider [phone] Encounter Details Date Type Department Care Team (Late st Contact Info) Description 02/14/2024 Lab Requisition [facility] Pathology & Laboratory Medicine - [address] [address] Outr Resulting Lab, Provider Social History Tobacco [...] 4th Generation Negative Negative 02/14/2024 21:23 EDT [facility] Comment:If acute HIV-1 infec tion is suspected in a high risk patient, submit plasma specimen for HIV-1 RNA quantitation test. Blood VENOUS BLOOD / Unknown 02/13/2024 14:10 EDT 02/14/2024 19:51 EDT Narrative [facility] - 02/14/2024 21:23 EDT Fourth Generation assay performed on the Siemens Cubeyouaur XPT. us Provider Outr Resulting Lab IMMUNOLOGY AND SEROL OGY ORDERABLES Final Result [facility] [address] [place], [place] [address] documented in this encounter Visit Diagnoses Not on filedocumented in this encounter Care Teams Set Up Person Relationship Specialty Start Date End Date Agus Kumar MD [address] [place] [address] PCP - General 06/18/15 documented as of this encounter
--- OUTSIDE RECORDS SUMMARY | 2024-08-24 15:22 | XMS_ITS | Encounter Summary ---
Author Organization [facility] Address [address] [place] [address] Care Team Providers Care Radio Board Operator Name Role Phone Unavailable Primary Care Provider Unavailabl e Encounter Details Date Type Department Care Team (Late st Contact Info) Description 05/23/2005 Results Only [facility] [address] [place] [address] Abhay Howard MD Social History Tobacco Use [...] ? SANDRA ROJO ? Accession #: ? [id number] : ? 1960 (Age: 44) ??F ?Collect Date: ? 05/23/2005 Location: ? [facility] ? Receive Date: ? 05/25/2005 Provider: ?ABHAY HOWARD MD Copy to: ? Specimen/Source: ?ThinPrep Pap Test, Cervix, processed on [employer] ThinPrep Imaging System, with manual evaluation Last [...] Final Res ult [facility] [address] [place] [address] documented in this encounter Visit Diagnoses Not on filedocumented in this encounter
--- OUTSIDE RECORDS SUMMARY | 2024-08-24 15:22 | XMS_ITS | Clinical Summary ---
Author Organization [facility] Address [address] [place] [address] Care Team Providers Care City Auditor Name Role Phone Agus Kumar MD Primary Care Provider [phone] Social History Tobacco Use Types Packs/Day Years [...] C Antibody Negative Negative 02/14/2024 21:59 EDT [facility] Blood VENOUS BLOOD / Unknown 02/13/2024 14:10 EDT 02/14/2024 19:51 EDT us Provider Outr Resulting Lab CHEMISTRY & BLOOD GA S ORDERABLES Final Result [facility] [address] [place] [address] from Last 3 Months or Most Recently Relevant to Health Maintenance Care Teams City Auditor Relationship Specialty Start Date End Date Agus Kumar MD [address] [place] [address] PCP - General 06/18/15
--- OUTSIDE RECORDS SUMMARY | 2024-08-24 15:22 | XMS_ITS | Encounter Summary ---
Author Organization [facility] Address [address] [place] [address] Care Team Providers Care Museum Security Chief Name Role Phone Agus Kumar MD Primary Care Provider [phone] Encounter Details Date Type Department Care Team (Late st Contact Info) Description 02/14/2024 Lab Requisition [facility] Pathology & Laboratory Medicine - [address] [address] Outr Resulting Lab, Provider Social History Tobacco [...] C Antibody Negative Negative 02/14/2024 21:59 EDT [facility] Blood VENOUS BLOOD / Unknown 02/13/2024 14:10 EDT 02/14/2024 19:51 EDT us Provider Outr Resulting Lab CHEMISTRY & BLOOD GA S ORDERABLES Final Result [facility] [address] [place] [address] documented in this encounter Visit Diagnoses Not on filedocumented in this encounter Care Teams Museum Security Chief Relationship Specialty Start Date End Date Agus Kumar MD [address] [place] [address] PCP - General 06/18/15 documented as of this encounter
[2024-08-24 19:14] LABS: ESR 23 mm/hr (0-30)
[2024-08-24 19:28] LABS: Abs Immature Grans 0.03 10^3/uL (0.0-0.06); Absolute Basophil Count 0.06 10^3/uL (0.0-0.2); Absolute Eosinophil Count 0.19 10^3/uL (0.0-0.7); Absolute Lymphocyte Count 1.01 10^3/uL (1.2-3.4); Absolute Monocyte Count 0.36 10^3/uL (0.1-0.8); Absolute Neutrophil Count 1.78 10^3/uL (1.2-6.7); Basophils % 1.7 %; Eosinophils % 5.5 %; HCT 40.2 % (36.0-46.0); HGB 12.9 g/dL (11.2-15.7); Immature Grans % 0.9 %; Lymphocytes % 29.4 %; MCH 27.7 pg (27.0-33.0); MCHC 32.1 % (32.0-36.0); MCV 86 fL (80-95); MPV 11.6 fL (8.0-11.0); Monocytes % 10.5 %; RBC 4.66 10^6/uL (3.93-5.22); RDW 14.6 % (11.7-14.6); RDW-SD 46.2 fL; WBC 3.43 10^3/uL (4.4-10.8)
[2024-08-24 19:31] LABS: Diff Comment PLT Morph Reviewed; Platelet Count 97 10^3/uL (130-400); RBC Morphology Normal
[2024-08-25 18:17] LABS: Hepatitis B Surface Ag Negative (Negative)
[2024-08-25 18:57] LABS: HBs Antibody, Quant 12.7 mIU/mL (See Note); Hepatitis B Surface Ab Positive (See Note)
[2024-08-26 10:45] LABS: C3 Complement 154 mg/dL (81-157); C4 Complement 23 mg/dL (13-39)
[2024-08-26 11:47] LABS: dsDNA Ab, IgG <22.0 IU/mL (<27.0)
[2024-08-26 12:11] LABS: Albumin 53.6 % (55.8-66.1); Total Protein 7.5 g/dL (6.3-8.2)
[2024-08-26 14:14] LABS: ANA Interpretation Negative (Negative)
[2024-08-27 09:47] LABS: C-Reactive Protein 0.71 mg/dL (<or=0.5)
== END 2024-08-24 15:20 | disposition home or self-care (01) ==
LOC: NCHCN 15:19
PROVIDERS: PCP Nurse Practitioner Family; Visit Provider Physician Assistant
DX: D72.819 Decreased white blood cell count, unspecified (principal); D69.6 Thrombocytopenia, unspecified; K76.0 Fatty (change of) liver, not elsewhere classified
CPT/HCPCS: 85652; 86022; 86706; 87340; 84165; 85025; 86038; 86140; 86160; 86225

== ENCOUNTER 2024-08-27 14:20 | Outpatient (REF) | payer MEDICARE, SELFPAY ==
[2024-08-27 19:16] LABS: Bilirubin Negative (Negative); Blood Negative (Negative); Clarity Clear (Clear); Glucose Negative (Negative); Ketones Negative (Negative); Leukocyte Esterase Negative (Negative); Nitrite Negative (Negative); Urobilinogen 0.2 mg/dL (Up to 0.2)
== END 2024-08-27 14:21 | disposition home or self-care (01) ==
LOC: NCHCN 14:20
PROVIDERS: Visit Provider Physician Assistant
DX: D72.819 Decreased white blood cell count, unspecified (principal)
CPT/HCPCS: 81003

== ENCOUNTER 2025-02-17 17:49 | Outpatient (REF) | payer MEDICARE, MEDICAID, SELFPAY ==
[2025-02-17 21:29] LABS: Abs Immature Grans 0.02 10^3/uL (0.0-0.06); HCT 36.7 % (36.0-46.0); HGB 12.0 g/dL (11.2-15.7); Immature Grans % 0.7 %; MCH 28.2 pg (27.0-33.0); MCHC 32.7 % (32.0-36.0); MCV 86 fL (80-95); MPV 12.1 fL (8.0-11.0); RBC 4.26 10^6/uL (3.93-5.22); RDW 14.5 % (11.7-14.6); RDW-SD 45.5 fL; WBC 2.77 10^3/uL (4.4-10.8)
[2025-02-17 21:52] LABS: Iron 62 ug/dL (50-170); Total Iron Binding Capacity 408 ug/dL (250-450); Transferrin Sat 15 % (15-50)
[2025-02-17 21:56] LABS: Platelet Count 86 10^3/uL (130-400)
[2025-02-17 21:57] LABS: RBC Morphology Normal
[2025-02-17 21:58] LABS: ALT 36 U/L (14-59); AST 41 U/L (15-37); Albumin 3.7 g/dL (3.4-5.0); Alkaline Phosphatase 93 U/L (46-116); Anion Gap 6.0 mmol/L (3-11); BUN 8 mg/dL (7-18); Bilirubin, Total 0.8 mg/dL (0.2-1.0); CO2 31.0 mmol/L (21.0-32.0); Calcium 9.3 mg/dL (8.5-10.1); Chloride 103 mmol/L (98-107); Estimated GFR 97.12 (mL/min/1.73m2); Ferritin 64 ng/mL (8-252); Glucose 123 mg/dL (74-106); Magnesium 1.8 mg/dL (1.8-2.4); Potassium 3.6 mmol/L (3.5-5.1); Sodium 140 mmol/L (136-145); Total Protein 7.5 g/dL (6.4-8.2)
[2025-02-19 09:30] LABS: Alpha 1 Antitrypsin,Serum 157 mg/dL (90-200)
== END 2025-02-17 17:50 | disposition home or self-care (01) ==
LOC: NCHCN 17:49
PROVIDERS: PCP Nurse Practitioner Family; Visit Provider Physician Assistant
DX: E46 Unspecified protein-calorie malnutrition (principal); K76.89 Other specified diseases of liver; D69.6 Thrombocytopenia, unspecified
CPT/HCPCS: 80053; 82784; 83516; 82103; 82728; 83540; 83550; 83735; 85025

== ENCOUNTER 2025-07-21 15:25 | Outpatient (REF) | payer MEDICARE, MEDICAID, SELFPAY ==
[2025-07-21 18:09] LABS: Abs Immature Grans 0.01 10^3/uL (0.0-0.06); HCT 35.6 % (36.0-46.0); HGB 11.7 g/dL (11.2-15.7); Immature Grans % 0.4 %; MCH 28.4 pg (27.0-33.0); MCHC 32.9 % (32.0-36.0); MCV 86 fL (80-95); MPV 11.8 fL (8.0-11.0); RBC 4.12 10^6/uL (3.93-5.22); RDW 14.6 % (11.7-14.6); RDW-SD 46.5 fL; WBC 2.69 10^3/uL (4.4-10.8)
[2025-07-21 18:26] LABS: ALT 39 U/L (10-49); AST 48 U/L (<34); Albumin 4.0 g/dL (3.2-5.0); Alkaline Phosphatase 115 U/L (46-116); Anion Gap 7.7 mmol/L (3-11); BUN 11 mg/dL (9-23); Bilirubin, Total 0.7 mg/dL (0.2-1.2); CO2 27.3 mmol/L (20.0-31.0); Calcium 9.5 mg/dL (8.3-10.6); Chloride 107 mmol/L (98-107); Ferritin 38 ng/mL (7-271); Glucose 162 mg/dL (74-106); Potassium 3.7 mmol/L (3.5-5.1); Sodium 142 mmol/L (136-145); Total Protein 7.2 g/dL (5.7-8.2)
[2025-07-21 18:27] LABS: Iron 55 ug/dL (50-170); Total Iron Binding Capacity 437 ug/dL (250-425)
[2025-07-21 18:58] LABS: Platelet Count 74 10^3/uL (130-400)
== END 2025-07-21 15:26 | disposition home or self-care (01) ==
LOC: NCHCN 15:25
PROVIDERS: PCP Nurse Practitioner Family; Visit Provider Physician Assistant
DX: D50.9 Iron deficiency anemia, unspecified (principal); K76.0 Fatty (change of) liver, not elsewhere classified
CPT/HCPCS: 80053; 82728; 83540; 83550; 85025